=== PATIENT | male | born 1965 | race Caucasian/White ===

== ENCOUNTER → 2017-08-14 | Outpatient (CLI) | payer BC ==
--- NOTE | 2017-08-14 19:44 | CT ---
EXAMINATION TYPE: CT chest wo con DATE OF EXAM: 08/14/2017 COMPARISON: NONE HISTORY: Abnormal chest xray. Cough and nasal congestion x3 months. CT DLP: 486.2 mGycm. Automated Exposure Control for Dose Reduction was Utilized. TECHNIQUE: CT scan of the thorax is performed without IV contrast. FINDINGS: The lungs are clear of infiltrate. There is no evidence of a pulmonary mass. There is no mediastinal adenopathy. There are a few mediastinal and bronchial lymph nodes that measure less than 1 cm. Heart size is normal. There is no pericardial effusion. There is no pleural effusion. There is some hypertr ophic spurring in the thoracic spine. There is some low-density calcification in the lateral right ki dney at the corticomedullary junction. IMPRESSION: No evidence of a discrete pulmonary abnormality. No pleural effusion. Nonspecific small m ediastinal and bronchial lymph nodes. Nonobstructing right renal calcification.
== END | disposition home or self-care (01) ==
LOC: RADCTMAIN 19:17
PROVIDERS: ATTEND Family Medicine
DX: R93.8 Abnormal findings on diagnostic imaging of other specified body structures (principal)
CPT/HCPCS: 71250

== ENCOUNTER 2019-11-13 08:25 | Observation (INO) | payer BC ==
[2019-11-13] MEDS ORDERED: ASPIRIN 81 MG PO STA (08:34)
[2019-11-13] MEDS ORDERED: NITROGLYCERIN SL TABS 0.4 MG TAB SUBLINGUAL STA (08:45)
--- NOTE | 2019-11-13 08:47 | ED ---
Chest Pain HPI - General Source: patient, family, RN notes reviewed Mode of arrival: wheelchair Limitations: no limitations <Geraldo Rhodes - Last Filed: 11/13/19 10:47> <Pascual Starkey - Last Filed: 11/13/19 10:52> - General Chief Complaint: Chest Pain Stated Complaint: chest tightness Time Seen by Provider: 11/13/19 08:34 - History of Present Illness Initial Comments: This a 54-year-old male presents emergency Department chief complaint of chest discomfort. He states last few nights he's had pain when he lays down states it goes away though. Patient states though it for him this morning he woke up with severe chest discomfort which is still there. Patient states that he had a history of hypertension but does not take any current medications. He did try taking some Tums and Pepcid this morning but not changes symptoms. He has noticed when he lays down still symptoms worsen. He feels short of breath and has some pleuritic chest pain denies any exertional dyspnea. Patient denies fever, chills, cough no URI symptoms no abdominal complaints. Patient states he was supposed to have left hip surgery this was canceled he did not have any prior clearance to this. (Geraldo Rhodes) - Related Data Home Medications Medication Instructions Recorded Confirmed Omeprazole 20 mg PO DAILY PRN 11/13/19 11/13/19 traMADol HCL [Ultram] 50 mg PO HS PRN 11/13/19 11/13/19 Allergies Allergy/AdvReac Type Severity Reaction Status Date / Time No Known Allergies Allergy Verified 11/13/19 10:15 Review of Systems ROS Other: All systems not noted in ROS Statement are negative. <Geraldo Rhodes - Last Filed: 11/13/19 10:47> ROS Other: All systems not noted in ROS Statement are negative. <Pascual Starkey - Last Filed: 11/13/19 10:52> ROS Statement: Those systems with pertinent positive or pertinent negative responses have been documented in the HPI. Past Medical History Past Medical History: GERD/Reflux, Hypertension Additional Past Medical History / Comment(s): no Rx for BP, sinus infection- currently on rx History of Any Multi-Drug Resistant Organisms: None Reported Past Surgical History: Orthopedic Surgery Additional Past Surgical History / Comment(s): nasal surgery, surgery for tendon injury middle finger left hand, Past Anesthesia/Blood Transfusion Reactions: No Reported Reaction Past Psychological History: No Psychological Hx Reported Smoking Status: Never smoker Past Alcohol Use History: Occasional Past Drug Use History: Opiates - Past Family History Mother Family Medical History: Cancer <Geraldo Rhodes - Last Filed: 11/13/19 10:47> General Exam Limitations: no limitations General appearance: alert, in no apparent distress Head exam: Present: atraumatic, normocephalic, normal inspection Eye exam: Present: normal appearance, PERRL, EOMI. Absent: scleral icterus, conjunctival injection, periorbital swelling ENT exam: Present: normal exam, normal oropharynx, mucous membranes moist Neck exam: Present: normal inspection, full ROM. Absent: tenderness, meningism us, lymphadenopathy Respiratory exam: Present: normal lung sounds bilaterally. Absent: respiratory distress, wheezes, rales, rhonchi, stridor, chest wall tenderness Cardiovascular Exam: Present: regular rate, normal rhythm, normal heart sounds. Absent: systolic murmur, diastolic murmur, rubs, gallop, clicks GI/Abdominal exam: Present: soft, normal bowel sounds. Absent: distended, tenderness, guarding, rebound, rigid Neurological exam: Present: alert, oriented X3 Skin exam: Present: warm, dry, intact, normal color. Absent: rash <LalaGeraldo singh - Last Filed: 11/13/19 10:47> Course <Pascual Starkey - Last Filed: 11/13/19 10:52> Vital Signs 11/13/19 08:26 Temperature 98.1 F Pulse Rate 94 Respiratory 18 Rate Blood Pressure 137/90 O2 Sat by Pulse 98 Oximetry - Reevaluation(s) Reevaluation #1: 11/13/19 10:52 PA supervision: I proceeded [id number] evaluation the patient and also did discuss findings with him and his . Patient will be admitted he did present with complaints of chest pain suspicious for angina. Initial workup is negative the case is discussed with Dr. Mcarthur. (Pascual Starkey) Chest Pain [facility] <Geraldo Rhodes - Last Filed: 11/13/19 10:47> - MDM 54-year-old male presented for chest discomfort. At this time troponin is negative, EKG does not reveal any acute changes. D-dimer was elevated CTA was performed with negative for PE. I do have concerns that this may be underlying ACS. Patient will be admitted for observation, repeat troponin, placed on heparin with cardiology evaluation and echo (Geraldo Rhodes) Disposition <Geraldo Rhodes - Last Filed: 11/13/19 10:47> <Pascual Starkey - Last Filed: 11/13/19 10:52> Clinical Impression: Chest pain Disposition: ADMITTED IP TO THIS HOSP Condition: Fair Referrals: Tiffany Adams MD [Primary Care Provider] - 1-2 days
[2019-11-13 08:58] LABS: Basophils % (A) 0 %; Eosinophils # (A) 0.1 k/uL (0-0.7); Eosinophils % (A) 1 %; HCT 45.1 % (39.0-53.0); HGB 15.3 gm/dL (13.0-17.5); Lymphocytes # (A) 0.7 k/uL (1.0-4.8); Lymphocytes % (A) 7 %; MCH 31.4 pg (25.0-35.0); MCHC 33.9 g/dL (31.0-37.0); MCV 92.7 fL (80.0-100.0); Mean Platelet Volume 6.9; Monocytes # (A) 0.4 k/uL (0-1.0); Monocytes % (A) 4 %; Neutrophils # (A) 7.8 k/uL (1.3-7.7); Neutrophils % (A) 86 %; Platelet Count 228 k/uL (150-450); RBC 4.86 m/uL (4.30-5.90); WBC 9.1 k/uL (3.8-10.6)
[2019-11-13 09:11] LABS: ALT 19 U/L (4-49); AST 22 U/L (17-59); African American GFR (CKD) >90 (>60 ml/min/1.73 sqM); Albumin 4.4 g/dL (3.5-5.0); Alkaline Phosphatase 127 U/L (38-126); Anion Gap 6 mmol/L; Blood Urea Nitrogen 16 mg/dL (9-20); Calcium 9.6 mg/dL (8.4-10.2); Carbon Dioxide 28 mmol/L (22-30); Chloride 102 mmol/L (98-107); Glucose 142 mg/dL (74-99); Magnesium 1.8 mg/dL (1.6-2.3); Non-African American GFR(CKD) >90 (>60 ml/min/1.73 sqM); Potassium 4.4 mmol/L (3.5-5.1); Sodium 136 mmol/L (137-145); Total Bilirubin 0.6 mg/dL (0.2-1.3); Total Protein 8.3 g/dL (6.3-8.2)
[2019-11-13 09:22] LABS: INR 0.9 (<1.2); Prothrombin Time 9.8 sec (9.0-12.0)
[2019-11-13 09:31] LABS: D-Dimer 1.53 mg/L FEU (<0.60); Partial Thromboplastin Time 21.9 sec (22.0-30.0)
--- NOTE | 2019-11-13 09:35 | XR ---
EXAMINATION TYPE: XR chest 2V DATE OF EXAM: 11/13/2019 COMPARISON: NONE HISTORY: Chest pain TECHNIQUE: Frontal and lateral views of the chest are obtained. FINDINGS: There is no focal air space opacity. No evidence for pneumothorax. No pleural effusion. Linear atelectasis left lung base. The cardiac silhouette size is within normal limits. The osseous structures are grossly intact. IMPRESSION: 1. No acute cardiopulmonary process.
--- NOTE | 2019-11-13 10:36 | CT ---
EXAMINATION TYPE: CT chest angio for PE DATE OF EXAM: 11/13/2019 COMPARISON: None HISTORY: Chest tightness CT DLP: 508.4 mGycm CONTRAST: CT chest with contrast and 3D reconstruction with MIP imaging is performed without and with IV Contra st, patient injected with 100 ml mL of Isovue 370. Contrast-enhanced CT of the chest was performed through the course of the pulmonary arteries with lynette g and mediastinal window settings submitted. 3D reconstruction with MIP imaging was also performed. PULMONARY ARTERIES: The pulmonary arteries and their major tributaries are patent. I do not see honey dence for sizable filling defect to suggest pulmonary embolic process. LUNGS: Mild dependent atelectasis. The lungs are clear and free of infiltrate. No pulmonary nodule or mass is detected. No pleural effusion. MEDIASTINUM: Aorta is of normal caliber. The heart is not enlarged. No evidence for mediastinal mass . No mediastinal lymph nodes greater than 1cm. HILAR STRUCTURES: No evidence for mass. No hilar lymph nodes greater than 1 cm. UPPER ABDOMEN: No significant abnormality is seen. IMPRESSION: 1. No evidence for Pulmonary embolism at this time.
[2019-11-13] MEDS ORDERED: NITROGLYCERIN SL TABS 0.4 MG TAB SUBLINGUAL PRN (10:48)
[2019-11-13] MEDS ORDERED: HEPARIN SODIUM,PORCINE 5,000 UNIT/ML 1 ML VIAL IV ONE (10:48)
[2019-11-13] MEDS ORDERED: HEPARIN SOD,PORK IN 0.45% NACL 25,000 UNIT in 0.45% NACL 1 250ML.BAG IV SCH (11:00)
[2019-11-13] MEDS ORDERED: traMADol 50 MG TAB PO PRN (11:33)
[2019-11-13] MEDS ORDERED: PANTOPRAZOLE 40 MG TABLET PO PRN (11:33)
[2019-11-13] MEDS: METOPROLOL TARTRATE 25 MG TAB PO SCH (15:59)
[2019-11-13] MEDS ORDERED: ONDANSETRON 4 MG TAB PO PRN (17:33)
--- NOTE | 2019-11-13 18:07 | P.HPIM ---
History of Present Illness H&P Date: 11/13/19 Chief Complaint: Chest heaviness and fluttering History of presenting complaint: This is a pleasant 54-year-old patient of Dr. Adams. Patient presents with the sensation of something sitting on the upper part of the chest. Also noticed a fluttering sensation. Symptoms seem to be more prominent on lying down. Patient has had symptoms of reflux. Had an EGD a few years ago. No dizziness no lightheadedness. No perspiration. Patient otherwise had been active up until most of his life. Some exercise limitation due to arthritis of the left hip pending surgery. Review of systems: GEN.: None EYES: None HEENT: None NECK: None RESPIRATORY: None CARDIOVASCULAR: As above GASTROINTESTINAL: None GENITOURINARY: None MUSCULOSKELETAL: Left hip pain LYMPHATICS: None HEMATOLOGICAL: None PSYCHIATRY: None NEUROLOGICAL: None Past medical history to include: GERD, left hip arthritis, Social history: Does not smoke. Alcohol occasionally. . Works in utilities at the [employer] Physical examination: VITAL SIGNS: 99.1, 94, 18, 128/79, 97% on room air GENERAL: BMI 31.4, sitting up for in distress. EYES: Pupils equal. Conjunctiva normal. HEENT: External appearance of nose and ears normal, oral cavity grossly normal. NECK: JVD not raised; masses not palpable. HEART: First and second heart sounds are normal; no edema. LUNGS: Respiratory rate normal; clear to auscultation. ABDOMEN: Soft, nontender, liver spleen not palpable, no masses palpable. PSYCH: Alert and oriented x3; mood and affect normal. NEUROLOGICAL: Cranial nerves grossly intact; no facial asymmetry, power and sensation grossly intact. LYMPHATICS: No lymph nodes palpable in the axilla and neck INVESTIGATIONS, reviewed in the clinical context: White count 9.1 hemoglobin 15.3 platelets 228 potassium 4.4 creatinine 0.82 Troponin I 2 EKG tracing personally reviewed by me-nonspecific ST segment changes in inferior leads Telemetry-reports episodes of SVT with a rapid ventricular rate Chest CTA-pulmonary embolism ruled out Chest x-ray film personally reviewed by me- nil acute abnormality Assessment: -Recurrent episodes of SVT reported on the telemetry. Patient has nonspecific finding in the inferior leads. -GERD -Obesity BMI 31.4 -Left hip possibly secondary osteoarthritis secondary possibly sports activity Plan: Initial cardiac enzymes are negative. We'll check patient's thyroid function. Order 2-D echocardiogram. Care was discussed with the patient. Cardiology was consulted. Past Medical History Past Medical History: GERD/Reflux, Hypertension Additional Past Medical History / Comment(s): no Rx for BP, sinus infection- currently on rx History of Any Multi-Drug Resistant Organisms: None Reported Past Surgical History: Orthopedic Surgery Additional Past Surgical History / Comment(s): nasal surgery, surgery for tendon injury middle finger left hand, Past Anesthesia/Blood Transfusion Reactions: No Reported Reaction Past Psychological History: No Psychological Hx Reported Smoking Status: Never smoker Past Alcohol Use History: Occasional Past Drug Use History: Opiates - Past Family History Mother Family Medical History: Cancer Medications and Allergies Home Medications Medication Instructions Recorded Confirmed Type Omeprazole 20 mg PO DAILY PRN 11/13/19 11/13/19 History traMADol HCL [Ultram] 50 mg PO HS PRN 11/13/19 11/13/19 History Allergies Allergy/AdvReac Type Severity Reaction Status Date / Time No Known Allergies Allergy Verified 11/13/19 10:15 Physical Exam Vitals: Vital Signs Temp Pulse Resp BP Pulse Ox 11/13/19 08:26 98.1 F 94 18 137/90 98 Intake and Output 11/12/19 11/13/19 11/13/19 22:59 06:59 14:59 Output Total 300 Balance -300 Output: Urine 300 Other: Weight 113.398 kg Results CBC & Chem 7: 11/13/19 08:40 11/13/19 08:40 Labs: Abnormal Lab Results - Last 24 Hours (Table) 11/13/19 11/13/19 11/13/19 Range/Units 08:40 08:40 08:40 Neutrophils # 7.8 H (1.3-7.7) k/uL Lymphocytes # 0.7 L (1.0-4.8) k/uL APTT 21.9 L (22.0-30.0) sec D-Dimer 1.53 H (<0.60) mg/L FEU Sodium 136 L (137-145) mmol/L Glucose 142 H (74-99) mg/dL Alkaline Phosphatase 127 H (38-126) U/L Total Protein 8.3 H (6.3-8.2) g/dL
[2019-11-13] MEDS ORDERED: HEPARIN SODIUM,PORCINE 5,000 UNIT/ML 1 ML VIAL IV PRN (19:20)
[2019-11-13] MEDS ORDERED: ACETAMINOPHEN TAB 325 MG TAB PO PRN (21:12)
[2019-11-14 05:37] VITALS: RESP 12
[2019-11-14 07:49] LABS: Platelet Count 229 k/uL (150-450)
--- NOTE | 2019-11-14 08:23 | ECHOF ---
Referral Reason:chest pain MEASUREMENTS -------- HEIGHT: 175.3 cm WEIGHT: 113.4 kg BP: RVIDd: 2.4 cm (< 3.3) IVSd: 1.0 cm (0.6 - 1.1) LVIDd: 4.4 cm (3.9 - 5.3) LVPWd: 1.4 cm (0.6 - 1.1) IVSs: 1.7 cm LVIDs: 2.8 cm LVPWs: 1.9 cm Ao Diam: 3.5 cm (2.0 - 3.7) LA Diam: 3.7 cm (2.7 - 3.8) MV EXCURSION: 15.271 mm (> 18.000) MV EF SLOPE: 109 mm/s (70 - 150) EPSS: 0.5 cm MV E Louis: 0.83 m/s MV DecT: 203 ms MV A Louis: 0.77 m/s MV E/A Ratio: 1.08 RAP: 5.00 mmHg RVSP: 16.07 mmHg FINDINGS -------- Sinus rhythm. This was a technically difficult study with suboptimal views. The left ventricular size is normal. There is mild concentric left ventricular hypertrophy. Overa ll left ventricular systolic function is normal with, an EF between 55 - 60 %. The right ventricle is normal in size. The left atrial size is normal. The right atrial size is normal. Lumason used The aortic valve is trileaflet, and appears structurally normal. No aortic stenosis or regurgitation. The mitral valve is normal. There is trace mitral regurgitation. The tricuspid valve appears structurally normal. Trace tricuspid regurgitation present. Right abby tricular systolic pressure is normal at < 35 mmHg. There is no pulmonic regurgitation present. The aortic root size is normal. IVC Not well visulized. There is no pericardial effusion. CONCLUSIONS -------- 1. This was a technically difficult study with suboptimal views. 2. There is mild concentric left ventricular hypertrophy. 3. Overall left ventricular systolic function is normal with, an EF between 55 - 60 %. 4. The left atrial size is normal. 5. Lumason used 6. The aortic valve is trileaflet, and appears structurally normal. No aortic stenosis or regurgitati on. 7. There is trace mitral regurgitation. 8. Trace tricuspid regurgitation present. [employer]ICOND[employer]CTOR EQUIPMENT TECHNICIAN: Ny Venegas RDCS
[2019-11-14] MEDS: METOPROLOL TARTRATE 25 MG TAB PO SCH (08:38)
[2019-11-14] MEDS ORDERED: DOBUTamine DRIP for NUC MED 500 MG in DEXTROSE/WATER 1 250ML.BAG IV ONE (09:00)
[2019-11-14] MEDS ORDERED: ASPIRIN 325 MG TAB PO SCH (09:00)
[2019-11-14] MEDS ORDERED: ASPIRIN 81 MG PO SCH (09:00)
--- NOTE | 2019-11-14 09:45 | CONS ---
CONSULTATION Shaun Araiza is a 54-year-old gentleman who works for the [employer] in the [employer] department. He takes omeprazole sometimes for heartburn type situation. He has no allergies. He is reasonably active person, has no symptoms of chest pain usually. Yesterday, he felt some burning discomfort in the chest, had some pleuritic component to it. He came in with these symptoms and had an elevated D-dimer. He went on to have a CT angiogram which did not reveal any pulmonary embolism. This morning he does not have any pain. On questioning, the pain was more in the right anterior chest, sharp in nature, but seemed to persist and made him concerned and that is why he came into the hospital. He is relatively comfortable at this time. Three sets of troponins are normal. PAST MEDICAL HISTORY: Unremarkable for hypertension, diabetes or any other major medical problems. He has not had any significant medical problems. MEDICATIONS: None. ALLERGIES: None. PHYSICAL EXAMINATION: On examination, blood pressure is 128/70, pulse rate 70 per minute, regular. HEENT: Unremarkable. Fundus was not examined by me. Neck is supple. No JVD. I do not hear a carotid bruit. There is no thyromegaly. Heart exam reveals S1, S2 heard normally. No rub, murmur or gallop. Lungs are clear. Abdomen is soft, nontender. Lower extremities reveal normal pulses. No edema. Central nervous system is normal. EKG revealed sinus mechanism, no acute changes. LABORATORY DATA: Laboratory data suggests normal troponins and elevated D-dimer. IMPRESSION: 1. Atypical chest pain. 2. Patient had multiple episodes of what seems to be self-limited runs of paroxysmal atrial tachycardia, which have resolved since I started him on beta earlene. RECOMMENDATIONS: This patient's pain is very atypical. I will recommend an echocardiogram and if this is unremarkable, proceed with a stress echo. He had short runs of self-limited paroxysmal atrial tachycardia which have resolved since I started him on beta earlene yesterday. I will place him on 25 mg of metoprolol tartrate b.i.d., check thyroid functions and proceed with an echo and stress echo and if these are normal, he can be discharged and I will see him in the office in 3 to 4 weeks. I discussed my thoughts in detail with the patient. Thank you very much for the consult. MMODL / IJN: [id number] /
--- NOTE | 2019-11-14 10:18 | ECHOS ---
STRESS ECHOCARDIOGRAM INDICATIONS: Chest pain. MEDICATIONS: BASELINE HEART RATE: 59 BASELINE BLOOD PRESSURE: 150/82 MAXIMUM HEART RATE: 145 MAXIMUM BLOOD PRESSURE: 134/58 85% MPHR: 141 100% MPHR: 166 METS: MAXIMUM STAGE REACHED: TOTAL EXERCISE TIME: CLINICAL INFORMATION: Baseline rhythm is sinus mechanism, rate of 59, normal axis, intervals, normal electrocardiogram. Baseline blood pressure 150/82 mmHg. Patient received an infusion of dobutamine per protocol and subsequently 0.5 mg intravenous atropine peak rate 145 beats per minute which is equal to 87% maximum predicted heart rate. Peak blood pressure 134/58 mmHg. Electrocardiograph monitoring revealed no evidence of diagnostic ischemic ST deviation. Baseline echocardiogram revealed normal wall thickening and motion. At peak infusion, there was normal wall thickening and motion without any hypokinesis or dyskinesis. CONCLUSION: 1. Normal electrocardiographic response to dobutamine infusion. 2. Normal stress echocardiogram with no evidence of stress induced ischemia. MMODL / IJN: [id number] /
[2019-11-14 10:53] VITALS: TEMP 98.7
[2019-11-14 15:13] VITALS: BP 126/80; PULSE 65
--- NOTE | 2019-11-14 19:53 | P.DS ---
Providers Date of admission: 11/13/19 10:52 Expected date of discharge: 11/14/19 Attending physician: German Mcarthur Consults: 11/13/19 10:49 Consult Physician Urgent Consulting Provider: Alexander Sanchez Consult Reason/Comments: chest pain Do you want consulting provider notified?: Yes Primary care physician: Tiffany Adams [facility] Course: Chief Complaint: Chest heaviness and fluttering History of presenting complaint: This is a pleasant 54-year-old patient of Dr. Adams. Patient presents with the sensation of something sitting on the upper part of the chest. Also noticed a fluttering sensation. Symptoms seem to be more prominent on lying down. Patient has had symptoms of reflux. Had an EGD a few years ago. No dizziness no lightheadedness. No perspiration. Patient otherwise had been active up until most of his life. Some exercise limitation due to arthritis of the left hip pending surgery. Telemetry did show paroxysmal atrial tachycardia. Put on low-dose beta earlene. No further symptoms. Patient also found to have exacerbation of GERD. Today-care was discussed in detail with the patient. Questions were answered. Put on a scheduled dose PPIs. Will need outpatient EGD. Continue beta blockers. Also underwent a dobutamine stress test today that was negative. Consultation: Dr. KENYATTA Sanchez from cardiology Physical examination: VITAL SIGNS: GENERAL: BMI 31.4, sitting up for in distress. EYES: Pupils equal. Conjunctiva normal. HEENT: External appearance of nose and ears normal, oral cavity grossly normal. NECK: JVD not raised; masses not palpable. HEART: First and second heart sounds are normal; no edema. LUNGS: Respiratory rate normal; clear to auscultation. ABDOMEN: Soft, nontender, liver spleen not palpable, no masses palpable. PSYCH: Alert and oriented x3; mood and affect normal. NEUROLOGICAL: Cranial nerves grossly intact; no facial asymmetry, power and sensation grossly intact. LYMPHATICS: No lymph nodes palpable in the axilla and neck INVESTIGATIONS, reviewed in the clinical context: Dobutamine stress echocardiogram-negative for ischemia TSH 1.3 LDL 35 White count 9.1 hemoglobin 15.3 platelets 228 potassium 4.4 creatinine 0.82 Troponin I 2 EKG tracing personally reviewed by me-nonspecific ST segment changes in inferior leads Telemetry-reports episodes of SVT with a rapid ventricular rate Chest CTA-pulmonary embolism ruled out Chest x-ray film personally reviewed by me- nil acute abnormality 2-D echocardiogram,-EF 55-60% Assessment: -Paroxysmal symptomatic atrial tachycardia -GERD exacerbation -Obesity BMI 31.4 -Left hip possibly secondary osteoarthritis secondary possibly sports activity Disposition: Home Patient Condition at Discharge: Fair Plan - Discharge Summary Discharge Rx Participant: No New Discharge Prescriptions: New Metoprolol Tartrate [Lopressor] 12.5 mg PO BID #60 tab Continue traMADol HCL [Ultram] 50 mg PO HS PRN PRN Reason: Pain Changed Omeprazole 20 mg PO BID #60 cap Discharge Medication List traMADol HCL [Ultram] 50 mg PO HS PRN 11/13/19 [History] Metoprolol Tartrate [Lopressor] 12.5 mg PO BID #60 tab 11/14/19 [Rx] Omeprazole 20 mg PO BID #60 cap 11/14/19 [Rx] Follow up Appointment(s)/Referral(s): Alexander Sanchez MD [STAFF PHYSICIAN] - 3 Weeks (call to make appt ) Charissa Ballard MD [STAFF PHYSICIAN] - 2 Weeks (EGD-uncontrolled reflux) Tiffany Adams MD [Primary Care Provider] - 1-2 days (make appt ) Patient Instructions/Handouts: Chest Pain (DC), Gastroesophageal Reflux Disease (DC), Atrial Tachycardia (DC), Cardiac Stress Test (DC) Discharge Disposition: HOME SELF-CARE
== END 2019-11-14 17:05 | disposition home or self-care (01) ==
LOC: EC 08:25 → 3SCARD 10:52
PROVIDERS: ADMIT Hospitalist; ATTEND Hospitalist
DX: R07.89 Other chest pain (principal); R79.89 Other specified abnormal findings of blood chemistry; R07.81 Pleurodynia; R06.02 Shortness of breath; I49.8 Other specified cardiac arrhythmias; I47.1 Supraventricular tachycardia; M25.552 Pain in left hip; I10 Essential (primary) hypertension; K21.9 Gastro-esophageal reflux disease without esophagitis; E66.9 Obesity, unspecified; Z68.31 Body mass index [BMI] 31.0-31.9, adult; Z79.899 Other long term (current) drug therapy; Z79.891 Long term (current) use of opiate analgesic; Z80.9 Family history of malignant neoplasm, unspecified
CPT/HCPCS: 96376 ×2; 96366 ×2; 93005 ×3; 96365; 99285; 36415; 93306; 93351; 85379; 80061; 80053; 84443; 83735; 84484; 85025; 85049; 85610; 85730 ×2; 71046; 71275; G0378 ×2; J1250; J1644 ×2; Q9950; Q9967

== ENCOUNTER 2019-11-30 16:17 | Emergency (ER) | payer BC ==
[2019-11-30 16:23] VITALS: RESP 18
[2019-11-30 17:32] LABS: Basophils % (A) 0 %; Eosinophils # (A) 0.1 k/uL (0-0.7); Eosinophils % (A) 3 %; HCT 43.7 % (39.0-53.0); HGB 15.1 gm/dL (13.0-17.5); Lymphocytes # (A) 0.2 k/uL (1.0-4.8); Lymphocytes % (A) 3 %; MCH 31.9 pg (25.0-35.0); MCHC 34.5 g/dL (31.0-37.0); MCV 92.6 fL (80.0-100.0); Mean Platelet Volume 7.4; Monocytes # (A) 0.1 k/uL (0-1.0); Monocytes % (A) 2 %; Neutrophils # (A) 5.1 k/uL (1.3-7.7); Neutrophils % (A) 92 %; Platelet Count 189 k/uL (150-450); RBC 4.72 m/uL (4.30-5.90); RDW 11.9 % (11.5-15.5); WBC 5.6 k/uL (3.8-10.6)
[2019-11-30] MEDS ORDERED: ACETAMINOPHEN TAB 325 MG TAB PO STA (17:32)
[2019-11-30 17:45] LABS: ALT 32 U/L (4-49); AST 29 U/L (17-59); African American GFR (CKD) >90 (>60 ml/min/1.73 sqM); Albumin 3.9 g/dL (3.5-5.0); Alkaline Phosphatase 123 U/L (38-126); Anion Gap 11 mmol/L; Blood Urea Nitrogen 13 mg/dL (9-20); Calcium 8.9 mg/dL (8.4-10.2); Carbon Dioxide 23 mmol/L (22-30); Chloride 101 mmol/L (98-107); Glucose 129 mg/dL (74-99); Non-African American GFR(CKD) >90 (>60 ml/min/1.73 sqM); Potassium 4.1 mmol/L (3.5-5.1); Sodium 135 mmol/L (137-145); Total Bilirubin 0.4 mg/dL (0.2-1.3); Total Protein 7.7 g/dL (6.3-8.2)
[2019-11-30 18:08] LABS: Appearance,Urine Clear (Clear); Bilirubin,Urine Negative (Negative); Blood,Urine Trace (Negative); Color,Urine Yellow; Glucose,Urine (UA) Negative (Negative); Ketones,Urine Negative (Negative); Leukocyte Esterase,Urine Negative (Negative); Mucus,Urine Rare /hpf; Nitrite,Urine Negative (Negative); PH, Urine 5.5 (5.0-8.0); Protein,Urine Negative (Negative); RBC,Urine 1 /hpf (0-5); Specific Gravity,Urine 1.013 (1.001-1.035); Urobilinogen,Urine <2.0 mg/dL (<2.0); WBC,Urine 1 /hpf (0-5)
--- NOTE | 2019-11-30 18:21 | XR ---
EXAMINATION TYPE: XR chest 2V DATE OF EXAM: 11/30/2019 COMPARISON: 11/13/2019 HISTORY: Fever TECHNIQUE: FINDINGS: Heart and mediastinum are normal. Lungs are clear of consolidation. There is no heart failu re. There are no hilar masses. There is small linear density left lung base. Bony thorax is intact. IMPRESSION: Small area of subsegmental atelectasis left lung base unchanged. Normal heart.
[2019-11-30] MEDS ORDERED: AMOXIC-POT CLAV 875MG STARTER PACK 2 TAB BTL PO STA (18:42)
[2019-11-30] MEDS ORDERED: AMOXIC-POT CLAV 875-125MG 1 EACH TAB PO STA (18:42)
--- NOTE | 2019-11-30 18:53 | ED ---
General Adult HPI - General Chief complaint: Fever Stated complaint: sinus infection Time Seen by Provider: 11/30/19 16:52 Source: patient, RN notes reviewed, old records reviewed Mode of arrival: ambulatory Limitations: no limitations - History of Present Illness Initial comments: 54-year-old male patient presents ED for chief complaint of approximately 3 days of fever. Patient reports that he has lots of sinus congestion and has had issues with sinus infections in the past. Reports that has had waxing and waning fevers. Frontal maxillary sinus pressure. Reports that he has a very mild cough which she believes is from the sinus drainage. Denies any other complaints at this time. Denies any chest pain shortness of breath headache. Systemic: Pt denies fatigue, frash. Pt denies weakness, night sweats, weight loss. Neuro: Pt denies headache, visual disturbances, syncope or pre-syncope. HEENT: Pt denies ocular discharge or irritation, otalgia, rhinorrhea, pharyngitis or notable lymphadenopathy. Cardiopulmonary: Pt denies chest pain, SOB, heart palpitations, dyspnea on exertion. Abdominal/GI: Pt denies abdominal pain, n/v/d. : Pt denies dysuria, burning w/ urination, frequency/urgency. Denies new onset urinary or bowel incontinence. MSK: Pt denies myalgia, loss of strength or function in extremities. Neuro: Pt denies new onset weakness, paresthesias. - Related Data Home Medications Medication Instructions Recorded Confirmed traMADol HCL [Ultram] 50 mg PO HS PRN 11/13/19 11/13/19 Previous Rx's Medication Instructions Recorded Metoprolol Tartrate [Lopressor] 12.5 mg PO BID #60 tab 11/14/19 Omeprazole 20 mg PO BID #60 cap 11/14/19 Amoxicillin/Potassium Clav 1 each PO Q12HR 14 Days #28 tab 11/30/19 [Augmentin 875-125 Tablet] Allergies Allergy/AdvReac Type Severity Reaction Status Date / Time No Known Allergies Allergy Verified 11/30/19 16:23 Review of Systems ROS Statement: Those systems with pertinent positive or pertinent negative responses have been documented in the HPI. ROS Other: All systems not noted in ROS Statement are negative. Past Medical History Past Medical History: GERD/Reflux, Hypertension Additional Past Medical History / Comment(s): no Rx for BP, sinus infection- currently on rx History of Any Multi-Drug Resistant Organisms: None Reported Past Surgical History: Orthopedic Surgery Additional Past Surgical History / Comment(s): nasal surgery, surgery for tendon injury middle finger left hand, Past Anesthesia/Blood Transfusion Reactions: No Reported Reaction Past Psychological History: No Psychological Hx Reported Smoking Status: Never smoker Past Alcohol Use History: Occasional Past Drug Use History: None Reported - Past Family History Mother History Unknown: Yes Family Medical History: Cancer General Exam - General Exam Comments Initial Comments: Constitutional: NAD, AOX3, Pt has pleasant affect. HEENT: NC/AT, trachea midline, neck supple, no lymphadenopathy. Posterior pharynx non erythematous, without exudates. External ears appear normal, without discharge. Mucous membranes moist. Eyes PERRLA, EOM intact. There is no scleral icterus. No pallor noted. Mild appears full pressure on frontal maxillary sinus. No temporal tenderness palpable cord or skin changes. Cardiopulmonary: RRR, no murmurs, rubs or gallops, no JVD noted. Lungs CTAB in anterior and posterior calloway. No peripheral edema. Abdominal exam: Abdomen soft and non-distended. Abdomen non-tender to palpation in all 4 quadrants. Bowel sounds active in LLQ. No hepatosplenomegaly. No ecc hymosis Neuro: CN II-XII intact. No nuchal rigidity. No raccon eyes, no mitchell sign, no hemotympanum. No cervical spinal tenderness. MSK: No posterior calf tenderness bilaterally, homans sign negative bilaterally. Posterior tibialis and radial pulse +2 bilaterally. Sensation intact in upper and lower extremities. Full active ROM in upper and lower extremities, 5/5 stregnth. Limitations: no limitations Course Vital Signs 11/30/19 11/30/19 16:19 19:03 Temperature 102.0 F H 100 F H Pulse Rate 123 H 98 Respiratory 18 18 Rate Blood Pressure 139/80 138/78 O2 Sat by Pulse 96 98 Oximetry Medical Decision Making - Medical Decision Making 54-year-old male patient presents ED for chief complaint of approximately 3 days of fever. Patient reports that he has lots of sinus congestion and has had issues with sinus infections in the past. Reports that has had waxing and waning fevers. Frontal maxillary sinus pressure. Reports that he has a very mild cough which she believes is from the sinus drainage. Denies any other com plaints at this time. Denies any chest pain shortness of breath headache. Patient vital signs are stable, afebrile. Physical exam displayed appears full sinus pressure. Laboratory investigations are obtained and overall unremarkable. Chest x-ray displayed small area of subsegmental atelectasis which is unchanged from prior. Patient will be placed on Augmentin and will have close patient follow-up with primary care provider and return to ER physician worsens. Case discussed with Dr. Morrison. - Lab Data Result diagrams: 11/30/19 17:10 11/30/19 17:10 Lab Results 11/30/19 11/30/19 11/30/19 Range/Units 17:10 17:10 17:10 WBC 5.6 (3.8-10.6) k/uL RBC 4.72 (4.30-5.90) m/uL Hgb 15.1 (13.0-17.5) gm/dL Hct 43.7 (39.0-53.0) % MCV 92.6 (80.0-100.0) fL MCH 31.9 (25.0-35.0) pg MCHC 34.5 (31.0-37.0) g/dL RDW 11.9 (11.5-15.5) % Plt Count 189 (150-450) k/uL Neutrophils % 92 % Lymphocytes % 3 % Monocytes % 2 % Eosinophils % 3 % Basophils % 0 % Neutrophils # 5.1 (1.3-7.7) k/uL Lymphocytes # 0.2 L (1.0-4.8) k/uL Monocytes # 0.1 (0-1.0) k/uL Eosinophils # 0.1 (0-0.7) k/uL Basophils # 0.0 (0-0.2) k/uL Sodium 135 L (137-145) mmol/L Potassium 4.1 (3.5-5.1) mmol/L Chloride 101 (98-107) mmol/L Carbon Dioxide 23 (22-30) mmol/L Anion Gap 11 mmol/L BUN 13 (9-20) mg/dL Creatinine 0.94 (0.66-1.25) mg/dL Est GFR (CKD-EPI)AfAm >90 (>60 ml/min/1.73 sqM) Est GFR (CKD-EPI)NonAf >90 (>60 ml/min/1.73 sqM) Glucose 129 H (74-99) mg/dL Plasma Lactic Acid Ron 1.7 (0.7-2.0) mmol/L Calcium 8.9 (8.4-10.2) mg/dL Total Bilirubin 0.4 (0.2-1.3) mg/dL AST 29 (17-59) U/L ALT 32 (4-49) U/L Alkaline Phosphatase 123 (38-126) U/L Total Protein 7.7 (6.3-8.2) g/dL Albumin 3.9 (3.5-5.0) g/dL Urine Color Urine Appearance (Clear) Urine pH (5.0-8.0) Ur Specific Ora (1.001-1.035) Urine Protein (Negative) Urine Glucose (UA) (Negative) Urine Ketones (Negative) Urine Blood (Negative) Urine Nitrite (Negative) Urine Bilirubin (Negative) Urine Urobilinogen (<2.0) mg/dL Ur Leukocyte Esterase (Negative) Urine RBC (0-5) /hpf Urine WBC (0-5) /hpf Urine Mucus (None) /hpf Coronavirus (PCR) (Not Detectd) Influenza Type A RNA (Not Detectd) Influenza Type B (PCR) (Not Detectd) 11/30/19 11/30/19 Range/Units 17:42 17:42 WBC (3.8-10.6) k/uL RBC (4.30-5.90) m/uL Hgb (13.0-17.5) gm/dL Hct (39.0-53.0) % MCV (80.0-100.0) fL MCH (25.0-35.0) pg MCHC (31.0-37.0) g/dL RDW (11.5-15.5) % Plt Count (150-450) k/uL Neutrophils % % Lymphocytes % % Monocytes % % Eosinophils % % Basophils % % Neutrophils # (1.3-7.7) k/uL Lymphocytes # (1.0-4.8) k/uL Monocytes # (0-1.0) k/uL Eosinophils # (0-0.7) k/uL Basophils # (0-0.2) k/uL Sodium (137-145) mmol/L Potassium (3.5-5.1) mmol/L Chloride (98-107) mmol/L Carbon Dioxide (22-30) mmol/L Anion Gap mmol/L BUN (9-20) mg/dL Creatinine (0.66-1.25) mg/dL Est GFR (CKD-EPI)AfAm (>60 ml/min/1.73 sqM) Est GFR (CKD-EPI)NonAf (>60 ml/min/1.73 sqM) Glucose (74-99) mg/dL Plasma Lactic Acid Ron (0.7-2.0) mmol/L Calcium (8.4-10.2) mg/dL Total Bilirubin (0.2-1.3) mg/dL AST (17-59) U/L ALT (4-49) U/L Alkaline Phosphatase (38-126) U/L Total Protein (6.3-8.2) g/dL Albumin (3.5-5.0) g/dL Urine Color Yellow Urine Appearance Clear (Clear) Urine pH 5.5 (5.0-8.0) Ur Specific Ora 1.013 (1.001-1.035) Urine Protein Negative (Negative) Urine Glucose (UA) Negative (Negative) Urine Ketones Negative (Negative) Urine Blood Trace H (Negative) Urine Nitrite Negative (Negative) Urine Bilirubin Negative (Negative) Urine Urobilinogen <2.0 (<2.0) mg/dL Ur Leukocyte Esterase Negative (Negative) Urine RBC 1 (0-5) /hpf Urine WBC 1 (0-5) /hpf Urine Mucus Rare H (None) /hpf Coronavirus (PCR) Not Detected (Not Detectd) Influenza Type A RNA Not Detected (Not Detectd) Influenza Type B (PCR) Not Detected (Not Detectd) - EKG Data -: EKG Interpreted by Me (and Dr. Morrison ) EKG Comments: Ventricular rate 111, IN interval 126, QRS 84, QT/QTC 310/421. Sinus tachycardia, cannot rule out inferior infarct age undetermined. Disposition Clinical Impression: Fever, Sinusitis Disposition: HOME SELF-CARE Condition: Stable Instructions (If sedation given, give patient instructions): Sinusitis (ED), Fe monalisa in Adults (ED) Additional Instructions: Follow-up with primary care provider tomorrow. Take antibiotics as directed. Return immediately to ER if condition worsens in any way. Prescriptions: Amoxicillin/Potassium Clav [Augmentin 875-125 Tablet] 1 each PO Q12HR 14 Days #28 tab Is patient prescribed a controlled substance at d/c from ED?: No Referrals: Tiffany Adams MD [Primary Care Provider] - 1-2 days
[2019-11-30 19:04] VITALS: BP 138/78; PULSE 98; TEMP 100
== END 2019-11-30 19:06 | disposition home or self-care (01) ==
LOC: EC 16:17
DX: J32.1 Chronic frontal sinusitis (principal); J98.11 Atelectasis; I10 Essential (primary) hypertension
CPT/HCPCS: 36415; 71046; 80053; 81001; 83605; 85025; 87040; 87502; 87635; 93005; 99284

== ENCOUNTER → 2019-12-02 | Outpatient (CLI) | payer BC ==
[2019-12-02 23:27] LABS: C Reactive Protein 10.1 mg/dL (0.0-0.8)
== END | disposition home or self-care (01) ==
LOC: LABMAIN 14:45
PROVIDERS: ATTEND Internal Medicine
DX: R50.9 Fever, unspecified (principal)
CPT/HCPCS: 36415; 85652; 86038; 86140; 86431; 87040; 87635

== ENCOUNTER → 2019-12-10 | Outpatient (CLI) | payer BC | END | disposition home or self-care (01) | LOC: LABWHC1 08:58 | PROVIDERS: ATTEND Internal Medicine Gastroenterology | DX: Z11.59 Encounter for screening for other viral diseases (principal) | CPT/HCPCS: 87635 ==

== ENCOUNTER 2019-12-12 07:39 | Day surgery (SDC) | payer BC ==
[2019-12-11 09:58] VITALS: BMI 31.0
[~2019-12-12 07:39] MED LIST: LACTATED RINGERS 1,000 ML IV SCH; LIDOCAINE 1% (10MG/ML) FOR IV START INTRADERMA PRN
[2019-12-12 08:11] VITALS: RESP 16; TEMP 97.6
[2019-12-12] MEDS ORDERED: LIDOCAINE 1% INJ 10MG/ML (20 ML MDV) ONE (08:12)
[2019-12-12] MEDS ORDERED: PROPOFOL 10 MG/ML 20 ML VIAL IV ONE (08:12)
--- NOTE | 2019-12-12 08:23 | P.PCN ---
Date of Procedure: 12/12/19 Procedure(s) Performed: BRIEF HISTORY: Patient is a 54-year-old, pleasant, white male scheduled for an upper endoscopy for evaluation long-standing history of GERD and recently has been having intermittent chest pain. He went to the emergency room at [facility] and had cardiac workup done that was negative. Subsequently the omeprazole was increased to 20 mg twice daily and symptoms and symptoms have significantly improved.. PROCEDURE PERFORMED: Esophagogastroduodenoscopy with biopsy. PREOPERATIVE DIAGNOSIS: Atypical chest pain and long-standing history of GERD. IV sedation per anesthesia. PROCEDURE: After informed consent was obtained, the patient was brought into the endoscopy unit. IV sedation was administered by Anesthesia under continuous monitoring. Initially the Olympus GIF-140 video endoscope was inserted into the mouth. Esophagus intubated without any difficulty. It was gradually advanced into the stomach and duodenum and carefully examined. The bulb and the second part of the duodenum appeared normal. The scope at this time was withdrawn to the stomach, adequately insufflated with air, and upon careful examination, mucosa of the antrum, had mild gastritis and biopsies were done from this area. The body, cardia and the fundus appeared normal. The scope was then withdrawn into the esophagus. The GE junction was located at 42 cm from the incisors. The esophagus appeared normal. There were no erosions or ulcerations seen , biopsies were done from the distal esophagus and the patient tolerated the procedure well. IMPRESSION: 1. Mild antral gastritis. 2. Normal-appearing esophagus with no evidence of esophagitis or esophageal stricture. RECOMMENDATIONS: The findings of this examination were discussed with the patient as well as his family. He was advised to follow with the biopsy results. He will continue with omeprazole 20 mg twice daily for 6 weeks and after that he can decrease it to once daily. He was briefly educated about diet modification antireflux measures. He'll be seen in office in 3 months..
[2019-12-12 08:37] VITALS: BP 127/78; PULSE 54
== END 2019-12-12 09:16 | disposition home or self-care (01) ==
LOC: ORWHC2ENDO 07:39
PROVIDERS: ATTEND Internal Medicine Gastroenterology
DX: K29.50 Unspecified chronic gastritis without bleeding (principal); K21.9 Gastro-esophageal reflux disease without esophagitis; I10 Essential (primary) hypertension; Z98.890 Other specified postprocedural states; Z79.899 Other long term (current) drug therapy
CPT/HCPCS: 43239; J2001; J2704; 88305

== ENCOUNTER → 2019-12-26 | Outpatient (CLI) | payer BC | END | disposition home or self-care (01) | LOC: LABPAT 11:40 | PROVIDERS: ATTEND Orthopaedic Surgery | DX: Z01.818 Encounter for other preprocedural examination (principal); Z01.812 Encounter for preprocedural laboratory examination; U07.1 COVID-19 | CPT/HCPCS: 80053; 81001; 85027; 85610; 85730; 86850; 86900; 86901; 87070; 93005 ==

== ENCOUNTER 2019-12-29 11:20 | Day surgery (SDC) | payer BC ==
[2019-12-24 14:26] VITALS: BMI 31.1
[2019-12-26 13:43] LABS: HCT 44.7 % (39.0-53.0); HGB 14.5 gm/dL (13.0-17.5); MCH 30.4 pg (25.0-35.0); MCHC 32.4 g/dL (31.0-37.0); MCV 93.8 fL (80.0-100.0); Mean Platelet Volume 7.1; Platelet Count 195 k/uL (150-450); RBC 4.77 m/uL (4.30-5.90); WBC 3.4 k/uL (3.8-10.6)
[2019-12-26 13:44] LABS: ALT 35 U/L (4-49); AST 32 U/L (17-59); African American GFR (CKD) >90 (>60 ml/min/1.73 sqM); Alkaline Phosphatase 116 U/L (38-126); Anion Gap 10 mmol/L; Blood Urea Nitrogen 10 mg/dL (9-20); Calcium 8.9 mg/dL (8.4-10.2); Carbon Dioxide 25 mmol/L (22-30); Chloride 103 mmol/L (98-107); Glucose 105 mg/dL (74-99); Non-African American GFR(CKD) >90 (>60 ml/min/1.73 sqM); Potassium 4.2 mmol/L (3.5-5.1); Sodium 138 mmol/L (137-145); Total Bilirubin 0.6 mg/dL (0.2-1.3)
[2019-12-26 13:48] LABS: Appearance,Urine Clear (Clear); Bacteria,Urine Rare /hpf; Bilirubin,Urine Negative (Negative); Blood,Urine Small (Negative); Color,Urine Yellow; Glucose,Urine (UA) Negative (Negative); Ketones,Urine Negative (Negative); Leukocyte Esterase,Urine Negative (Negative); Mucus,Urine Many /hpf; Nitrite,Urine Negative (Negative); Protein,Urine Trace (Negative); RBC,Urine 4 /hpf (0-5); Specific Gravity,Urine 1.026 (1.001-1.035); Squamous Epithelial Cell,Urine <1 /hpf (0-4); WBC,Urine 3 /hpf (0-5)
[2019-12-26 13:50] LABS: INR 0.9 (<1.2); Prothrombin Time 9.9 sec (9.0-12.0)
[2019-12-26 14:04] LABS: Partial Thromboplastin Time 21.5 sec (22.0-30.0)
[~2019-12-29 11:20] MED LIST changes: +ACETAMINOPHEN TAB 500 MG TAB PO ONE; +DEXAMETHASONE SOD PHOSPHATE 10 MG/ML 1 ML VIAL IV ONE; +GABAPENTIN 300 MG CAP PO ONE; +HYDROmorphone 0.5 MG/0.5 ML SYRINGE IVP PRN; -LIDOCAINE 1% (10MG/ML) FOR IV START INTRADERMA PRN; +MELOXICAM 7.5 MG TAB PO ONE; +ONDANSETRON 4 MG/2 ML VIAL IVP ONE; +ROPIVACAINE 246.25 MG, EPINEPHrine 0.5 MG, KETOROLAC 30 MG, cloNIDine HCL/PF 80 MCG, WA... MISCELLANE ONE; +TRANEXAMIC ACID 1,000 MG in SODIUM CHLORIDE 0.9% 100 ML IVPB ONE
[2019-12-29] MEDS ORDERED: IV FLUID CONTINUATION 1,000 ML IV ONE (12:55)
[2019-12-29] MEDS ORDERED: traMADol 50 MG TAB PO PRN (13:06)
[2019-12-29] MEDS ORDERED: HYDROmorphone 0.5 MG/0.5 ML SYRINGE IVP PRN ×2 (13:06)
[2019-12-29] MEDS ORDERED: HYDROmorphone 1 MG/ML 1 ML SYRINGE IVP PRN (13:06)
[2019-12-29] MEDS ORDERED: HYDROcodone/APAP 10-325MG 1 EACH TAB PO PRN (13:06)
[2019-12-29] MEDS ORDERED: ONDANSETRON 4 MG/2 ML VIAL IVP PRN (13:06)
[2019-12-29] MEDS ORDERED: NALOXONE 0.4 MG/ML 1 ML VIAL IV PRN (13:06)
[2019-12-29] MEDS ORDERED: HYDROcodone/APAP 5-325MG 1 EACH TAB PO PRN (13:06)
[2019-12-29] MEDS ORDERED: MAGNESIUM HYDROXIDE 2,400 MG/10 ML CUP PO PRN (13:06)
[2019-12-29] MEDS ORDERED: DIAZEPAM 5 MG TAB PO PRN (13:06)
[2019-12-29] MEDS ORDERED: TEMAZEPAM 15 MG CAP PO PRN (13:06)
[2019-12-29] MEDS ORDERED: fentaNYL (PF) 50 MCG/ML 2 ML AMP ONE (13:15)
[2019-12-29] MEDS ORDERED: SODIUM CHLORIDE 0.9% 100 ML BAG ONE (13:15)
[2019-12-29] MEDS ORDERED: LIDOCAINE 1% INJ 10MG/ML (20 ML MDV) ONE (13:15)
[2019-12-29] MEDS ORDERED: PROPOFOL 10 MG/ML 20 ML VIAL IV ONE (13:15)
[2019-12-29] MEDS ORDERED: MIDAZOLAM 2 MG/2 ML VIAL ONE (13:15)
[2019-12-29] MEDS ORDERED: diphenhydrAMINE 50 MG/ML 1 ML VIAL ONE (13:15)
[2019-12-29] MEDS ORDERED: TRANEXAMIC ACID 1,000 MG/10 ML VIAL ONE (13:15)
[2019-12-29] MEDS ORDERED: ceFAZolin 3,000 MG in SODIUM CHLORIDE 0.9% IRRIGATIO 3,000 ML IRRIGATION ONE (13:17)
--- NOTE | 2019-12-29 14:43 | P.OP ---
Date of Procedure: 12/29/19 Preoperative Diagnosis: Severe osteoarthritis left hip Postoperative Diagnosis: Severe osteoarthritis left hip Procedure(s) Performed: Left total hip arthroplasty with a direct anterior approach Implants: Eid and nephew Polarstem size 4 standard Eid & Nephew R3, 3 hole acetabular shell, 52 mm Eid [employer] Nephew reflection 6.5 mm cancellus screw, 20 mm 2 Eid [employer] Nephew R3, XLPE 20 acetabular liner Eid & Nephew Oxinium femoral head 36 m, +4 All components were press-fit. The articulation is Oxinium on polyethylene. Anesthesia: spinal Surgeon: Geraldo Farrar Professor Of Legal Studies #1: Myles Andrews Estimated Blood Loss (ml): 200 (72 mL returned with Cell Saver) Pathology: other (Femoral head) Condition: stable Disposition: PACU Indications for Procedure: After failure of conservative treatment we discussed the surgical and nonsurgical treatment options at length. Patient wishes to proceed with a total hip arthroplasty with a direct anterior approach. Complications specific to this procedure were discussed at length, including but not limited to infection, leg length discrepancy, dislocation, and nerve injury. Covid-19 was also discussed at length with the patient, and they are aware of the current policies and procedures. The patient was given the option of delaying surgery, but they elect to proceed knowing these risks. Patient is aware of all these complications and informed consent was obtained Operative Findings: The operative findings are consistent with severe osteoarthritis of the left hip Description of Procedure: Patient was seen and evaluated in the preoperative area, consent was reviewed, and the surgical site was marked with a skin marker. Patient was then brought to the operating room and given prophylactic antibiotics intravenously. 1 g of Tranexamic acid was also given. A spinal anesthetic was administered by the anesthesia department. The patient was then placed on the Homer table with the bony prominences well-padded. The hip area was then prepped and draped in usual sterile fashion. A universal timeout was then performed, which confirmed the patient's name, surgical site, ALLERGIES, and procedure being performed. Next the incision site was located at 1 cm distal and 1 cm lateral to the anterior superior iliac spine. The skin and subcutaneous tissues were sharply incised. Incision was carefully dissected down to the fascia overlying the tensor fascia precious muscle. This fascia was then incised in line with the incision. Next, using blunt finger dissection, the tensor fascia precious muscle was dissected off its investing fascia. The muscle was then carefully retracted laterally with a cobra retractor over the lateral neck of the femur. Next, the circumflex vessels were identified and cauterized using the AquaMantis device. The anterior hip capsule was then exposed. The capsule was then opened and an inverted T fashion. Cobra retractors were then placed intracapsularly. The proximal femur was then visualized. The femoral neck was then osteotomized appropriate level above the lesser trochanter. Small amount of traction was placed with the Homer table. A small wedge of bone was then removed from the remaining femoral head. Next, using a corkscrew femoral head was easily removed from the acetabulum. On gross visual inspection, the femoral head had complete loss of articular cartilage in multiple periarticular osteophytes. Attention was then turned to the acetabulum. the acetabulum was exposed and any remaining labrum was excised. Sequential reaming of the acetabulum was performed using fluoroscopic guidance. When the appropriate size was reached, a trial was then placed. The position and fit of the trial was checked with fluoroscopy. The trial was then removed. Then, using fluoroscopic guidance, the final implant was impacted at 20 of anteversion and 40 of abduction, and fully seated in the acetabulum. 2 screws were then placed in the acetabulum. Again fluoroscopy was used to check position of the screws. Next, the liner was then impacted, with a 20 elevated liner located in the anterior superior quadrant. Component locking was confirmed. Attention was then directed to the femur. With the aid of the Homer table, the femur was externally rotated to approximately 130, extended, and abducted under the opposite leg. A side hook was then placed under the proximal femur, and the side hook elevator was used to elevate the proximal femur. Retractors were then placed. A capsular release was performed, as well as a release of the conjoined tendon, which afforded excellent visualization of the proximal femur. Next, a box osteotome was used to lateralize the proximal femur. A hands parter was then used to locate the femoral canal. Sequential broaching was then performed with appropriate size which afforded excellent fixation in the proximal femur. A trial was then placed with appropriate head and neck, and the hip was gently reduced with the aid of the Homer table. Fluoroscopy was then used to check position of the components, as well as to ensure equal leg lengths. The hip was then gently dislocated and the trials were then removed. Final implants were then impacted and the hip was again reduced. Final fluoroscopic x-rays confirmed that the components were in anatomic position, as well as equal leg lengths. The hip was also taken through range of motion, and found to be stable. The hip was then copiously irrigated with antibiotic solution with pulsatile lavage. The hip was then irrigated with Irrisept solution. The soft tissues were then injected with a ropivacaine solution, which consisted of 246.25 mg of ropivacaine, 0.5 mg of epinephrine, 30 mg of Toradol, 80 g of clonidine, and 48.45 mL of sterile water, for a total of 100 mL of fluid injected. A second dose of 1 g of Tranexamic acid was also given. the fascia was then closed with 2-0 strata fix suture. The subcutaneous tissue was closed with 3-0 Vicryl. The subcuticular tissue was closed with 3-0 strata fix suture. The skin was then closed with Dermabond glue and a sterile silver dressing. The patient was then transferred to the recovery room in stable condition. The veterinarian assistant LAWRENCE Vargas was required due to the complexity of surgery, and the need for skilled surgical aides teacher for positioning, draping, exposure, retraction, and closure of the wound.
--- NOTE | 2019-12-29 14:47 | XR ---
EXAMINATION TYPE: XR Hip Limited LT DATE OF EXAM: 12/29/2019 COMPARISON: NONE HISTORY: 54-year-old male left anterior hip replacement FINDINGS: Images show placement of left hip arthroplasty. FLUOROSCOPY Fluoroscopy time of 50 seconds was used during left anterior hip arthroplasty. 2 image/s document/s the procedure. IMPRESSION: Fluoroscopy as above.
[2019-12-29] MEDS ORDERED: LACTATED RINGERS 1,000 ML IV ONE ×2 (15:10)
--- NOTE | 2019-12-29 15:20 | XR ---
EXAMINATION TYPE: XR Hip Limited LT DATE OF EXAM: 12/29/2019 COMPARISON: NONE HISTORY: 54-year-old male status post hip surgery, assess surgical alignment TECHNIQUE: Single portable AP view FINDINGS: Image shows placement of left total hip arthroplasty. Acetabular cup and femoral stem components of t he prosthesis appear well seated without periprosthetic fracture. Alignment grossly anatomic. Some sc attered soft tissue air related to recent operation. IMPRESSION: Uncomplicated postoperative appearance left total hip arthroplasty.
[2019-12-29] MEDS: LACTATED RINGERS 1,000 ML IV SCH (16:01)
[2019-12-29] MEDS ORDERED: SENNOSIDES-DOCUSATE SODIUM 1 EACH TAB PO SCH (21:00)
[2019-12-29] MEDS: PANTOPRAZOLE 40 MG TABLET PO SCH (21:52)
[2019-12-29] MEDS: ASPIRIN 325 MG TAB PO SCH (21:52)
--- NOTE | 2019-12-29 21:52 | P.CONS ---
History of Present Illness - Reason for Consult Consult date: 12/29/19 Medical management Requesting physician: Geraldo Farrar - Chief Complaint Left hip repair - History of Present Illness Consultation: This is a pleasant 54-year-old patient of Dr. Alaina Adams. Chronic stable medical conditions include GERD, hypertension, osteoarthritis. Patient has undergone left total hip arthroplasty. Operative site is slightly numb. No nausea vomiting. Patient did try some popsicle. No nausea vomiting. No headache. No chest pain or shortness of breath. Sitting over the bed. Watching television. Review of systems: GEN.: None EYES: None HEENT: None NECK: None RESPIRATORY: None CARDIOVASCULAR: None GASTROINTESTINAL: None GENITOURINARY: None MUSCULOSKELETAL: Joint pains LYMPHATICS: None HEMATOLOGICAL: None PSYCHIATRY: None NEUROLOGICAL: None Past medical history to include: GERD, hypertension, osteoarthritis Social history: Does not smoke. Alcohol occasionally. . Works in the [employer] for [employer] on Physical examination: VITAL SIGNS: 98, 60, 18, 119/77, 95% on room air GENERAL: BMI 30.2, sitting up, comfortable. EYES: Pupils equal. Conjunctiva normal. HEENT: External appearance of nose and ears normal, oral cavity grossly normal. NECK: JVD not raised; masses not palpable. HEART: First and second heart sounds are normal; no edema. LUNGS: Respiratory rate normal; clear to auscultation. ABDOMEN: Soft, nontender, liver spleen not palpable, no masses palpable. PSYCH: Alert and oriented x3; mood and affect normal. NEUROLOGICAL: Cranial nerves grossly intact; no facial asymmetry, power and sensation grossly intact. MUSCULOSKELETAL: Dressing over the left hip incision site LYMPHATICS: No lymph nodes palpable in the axilla and neck INVESTIGATIONS, reviewed in the clinical context: White count 3.4 hemoglobin 14.5 potassium 4.2 creatinine 0.80 Assessment: -Left total hip arthroplasty -Primary osteoarthritis -GERD -Essential hypertension Plan: Home medications resumed. We'll continue with home medications. Patient is in aspirin for DVT prophylaxis per Dr. Farrar. Care was discussed with the patient. Questions were answered. Thank you Dr. Farrar Past Medical History Past Medical History: GERD/Reflux, Hypertension, Osteoarthritis (OA) Additional Past Medical History / Comment(s): no Rx for BP, sinus infection- currently on rx History of Any Multi-Drug Resistant Organisms: None Reported Past Surgical History: Orthopedic Surgery Additional Past Surgical History / Comment(s): nasal surgery, surgery for tendon injury middle finger left hand, egd, bone spurs removed rt ankle Past Anesthesia/Blood Transfusion Reactions: No Reported Reaction Past Psychological History: No Psychological Hx Reported Smoking Status: Never smoker Past Alcohol Use History: Occasional Past Drug Use History: None Reported - Past Family History Mother History Unknown: Yes Family Medical History: Cancer Medications and Allergies Home Medications Medication Instructions Recorded Confirmed Type Omeprazole 20 mg PO BID #60 cap 11/14/19 12/29/19 Rx Acetaminophen [Tylenol Extra 1,000 mg PO HS PRN 12/24/19 12/29/19 History Strength] Metoprolol Tartrate [Lopressor] 25 mg PO DAILY 12/24/19 12/29/19 History Allergies Allergy/AdvReac Type Severity Reaction Status Date / Time No Known Allergies Allergy Verified 12/29/19 11:34 Physical Exam Vitals: Vital Signs Temp Pulse Pulse Pulse Resp BP Pulse Ox 12/29/19 19:35 98.0 F 60 18 119/77 95 12/29/19 18:00 61 129/83 12/29/19 17:45 62 123/75 12/29/19 17:30 63 138/83 12/29/19 17:15 56 L 125/79 12/29/19 16:46 58 L 129/78 12/29/19 16:30 66 16 130/82 12/29/19 16:15 60 122/79 12/29/19 16:00 97.6 F 64 18 122/77 12/29/19 15:38 50 L 16 107/61 96 12/29/19 15:23 55 L 16 108/57 96 12/29/19 15:08 53 L 16 114/66 98 12/29/19 14:53 97.0 F L 70 16 118/68 97 12/29/19 11:41 97.6 F 73 16 159/92 98 12/29/19 05:00 57 L 125/76 Intake and Output 12/29/19 12/29/19 12/29/19 06:59 14:59 22:59 Intake Total 1001 350 Output Total 200 Balance 801 350 Intake: IV 1001 350 Output: Estimated Blood Loss 200 Other: Weight 92.7 kg 92.7 kg Results CBC & Chem 7: 12/26/19 12:33 12/26/19 12:33 Labs: Microbiology - Last 24 Hours (Table) 12/26/19 12:33 Nasal Screen MRSA/MSSA - Final Nasal Swab Staphylococcus aureus
[2019-12-30] MEDS: LACTATED RINGERS 1,000 ML IV SCH (00:44)
[2019-12-30] MEDS: ACETAMINOPHEN TAB 325 MG TAB PO PRN ×2 (04:56→08:41)
[2019-12-30 07:49] LABS: Basophils % (A) 0 %; Eosinophils % (A) 0 %; HCT 36.5 % (39.0-53.0); HGB 11.9 gm/dL (13.0-17.5); Lymphocytes % (A) 10 %; MCH 29.8 pg (25.0-35.0); MCHC 32.5 g/dL (31.0-37.0); MCV 91.7 fL (80.0-100.0); Mean Platelet Volume 7.2; Monocytes # (A) 0.5 k/uL (0-1.0); Monocytes % (A) 5 %; Neutrophils # (A) 7.8 k/uL (1.3-7.7); Neutrophils % (A) 83 %; Platelet Count 188 k/uL (150-450); RBC 3.98 m/uL (4.30-5.90); RDW 12.5 % (11.5-15.5); WBC 9.3 k/uL (3.8-10.6)
[2019-12-30 08:23] VITALS: BP 126/74; PULSE 50; RESP 17; TEMP 98.1
[2019-12-30] MEDS: PANTOPRAZOLE 40 MG TABLET PO SCH (08:38)
[2019-12-30] MEDS: ASPIRIN 325 MG TAB PO SCH (08:38)
[2019-12-30] MEDS ORDERED: METOPROLOL TARTRATE 25 MG TAB PO SCH (09:00)
--- NOTE | 2019-12-30 10:52 | P.DS ---
Providers Expected date of discharge: 12/30/19 Attending physician: Geraldo Farrar Consults: 12/29/19 13:06 Consult Physician Routine Consulting Provider: German Mcarthur Consult Reason/Comments: post op medical management Do you want consulting provider notified?: Yes Primary care physician: Tiffany Adams - Discharge Diagnosis(es) (1) S/P total hip arthroplasty Patient was admitted to the OR on 12/29/2019 to undergo a left total hip arthroplasty. He had failed conservative measures as an outpatient and desired to proceed with elective surgery after given informed consent. He underwent the above procedure which he tolerated well without complication. Postoperative hospital course has remained without complication. On day of discharge he is afebrile, vital signs stable, labs within acceptable ranges, tolerating by mouth meds and diet, voiding without difficulty, positive flatus, denies abdominal pain or calf pain, pain is controlled on oral pain medication and has no new complaints. Wound is benign, neurovascular status is intact, calf is soft and nontender, abdomen soft and nontender. Review of systems is negative for numbness, tingling, fever, chills, chest pain, shortness of breath, nausea, vomiting, dizziness, headaches, slurred speech or other Current Visit: Yes Status: Acute Priority: Medium Procedures: Left HILLARY Patient Condition at Discharge: Good Plan - Discharge Summary Discharge Rx Participant: No New Discharge Prescriptions: New Aspirin 325 mg PO BID #60 tab HYDROcodone/APAP 7.5-325MG [Porter 7.5-325] 1 - 2 each PO Q6HR PRN #56 tab PRN Reason: Pain No Action Omeprazole 20 mg PO BID #60 cap Metoprolol Tartrate [Lopressor] 25 mg PO DAILY Acetaminophen [Tylenol Extra Strength] 1,000 mg PO HS PRN PRN Reason: Pain Discharge Medication List Omeprazole 20 mg PO BID #60 cap 11/14/19 [Rx] Acetaminophen [Tylenol Extra Strength] 1,000 mg PO HS PRN 12/24/19 [History] Metoprolol Tartrate [Lopressor] 25 mg PO DAILY 12/24/19 [History] Aspirin 325 mg PO BID #60 tab 12/30/19 [Rx] HYDROcodone/APAP 7.5-325MG [Porter 7.5-325] 1 - 2 each PO Q6HR PRN #56 tab 12/30/19 [Rx] Follow up Appointment(s)/Referral(s): Geraldo Farrar DO [Doctor of Osteopathic Medicine] - 01/12/20 2:45 pm Activity/Diet/Wound Care/Special Instructions: Keep wound clean and dry Take meds as directed Follow-up with Dr. Farrar in office Weight bear as tolerated May shower in 3 days if no bleeding Discharge Disposition: HOME WITH HOME HEALTH SERVICES
[2019-12-30] MEDS ORDERED: MULTIVITAMINS, THERA 1 EACH TAB PO SCH (12:00)
--- NOTE | 2019-12-31 20:59 | P.PN ---
Progress Note - Text Progress Note Date: 12/30/19 - Chief Complaint Left hip repair Consultation: This is a pleasant 54-year-old patient of Dr. Alaina Adams. Chronic stable medical conditions include GERD, hypertension, osteoarthritis. Patient has undergone left total hip arthroplasty. Operative site is slightly numb. No nausea vomiting. Patient did try some popsicle. No nausea vomiting. No headache. No chest pain or shortness of breath. Sitting over the bed. Watching television. Today-doing well. Pain well controlled. No nausea vomiting. Did ambulate. No new issues. Review of systems: Was done for constitutional, cardiovascular, GI, pulmonary. relevant finding as above Current medications reviewed in today's electronic records Physical examination: VITAL SIGNS: 98.1, 50, 17, 126/74, 97% on room air GENERAL:, sitting up in the chair, comfortable. EYES: Pupils equal. Conjunctiva normal. HEENT: External appearance of nose and ears normal, oral cavity grossly normal. NECK: JVD not raised; masses not palpable. HEART: First and second heart sounds are normal; no edema. LUNGS: Respiratory rate normal; clear to auscultation. ABDOMEN: Soft, nontender, liver spleen not palpable, no masses palpable. PSYCH: Alert and oriented x3; mood and affect normal. NEUROLOGICAL: Cranial nerves grossly intact; no facial asymmetry, power and sensation grossly intact. MUSCULOSKELETAL: Dressing over the left hip incision site INVESTIGATIONS, reviewed in the clinical context: White count 9.3 hemoglobin 11.9 Previous testing White count 3.4 hemoglobin 14.5 potassium 4.2 creatinine 0.80 Assessment: -Left total hip arthroplasty -Primary osteoarthritis -GERD -Essential hypertension -Acute postprocedure blood loss anemia, as expected from surgery Plan: Stable. Continue current medication. Follow with PCP upon discharge. Thank you Dr. Farrar
== END 2019-12-30 13:27 | disposition home health service (06) ==
LOC: OR 11:20 → 4SSUR 15:45 → OR 12-30 13:27
PROVIDERS: ATTEND Orthopaedic Surgery
DX: M16.12 Unilateral primary osteoarthritis, left hip (principal); N28.1 Cyst of kidney, acquired; I10 Essential (primary) hypertension; R00.0 Tachycardia, unspecified; K21.9 Gastro-esophageal reflux disease without esophagitis; Z98.890 Other specified postprocedural states; Z83.3 Family history of diabetes mellitus; Z82.49 Family history of ischemic heart disease and other diseases of the circulatory system; Z79.899 Other long term (current) drug therapy; Z79.891 Long term (current) use of opiate analgesic; Z97.3 Presence of spectacles and contact lenses
CPT/HCPCS: 27130; 97161; 97165; 86891; 85025; 88300; 73501; C1776; J2250; J0171; J1200; J1100; J0690 ×3; J2405; J2001; J3010; J1885; J1170; J2795; J2704; J0735; 80053; 81001; 85027; 85610; 85730; 86850; 86900; 86901; 87070; 93005

== ENCOUNTER → 2020-03-17 | Outpatient (CLI) | payer BC ==
--- NOTE | 2020-03-18 06:57 | US ---
EXAMINATION TYPE: US kidneys/renal and bladder DATE OF EXAM: 03/17/2020 COMPARISON: CT Chest CLINICAL HISTORY: N28.1 Atypical renal cyst. Pt states right renal cyst visualized on outside ultraso und EXAM MEASUREMENTS: Right Kidney: 10.1 x 6.2 x 5.6 cm Left Kidney: 12.3 x 5.8 x 5.0 cm Right Kidney: No evidence of hydro, possible renal calculus mid= 0.5 cm/ adjacent to possible renal c alculus there is a hypoechoic area, ?lobulation of renal tissue rather than cyst Left Kidney: No evidence of hydro, possible renal calculus mid= 0.7 cm Bladder: wnl Bilateral Jets seen: Yes IMPRESSION: Bilateral nephrolithiasis. There is lobulation of the right kidney which may represent a dromedary hu mp. No definite renal cyst is seen. CT scan of the abdomen is recommended for further evaluation.
== END | disposition home or self-care (01) ==
LOC: RADUSWWP 16:10
PROVIDERS: ATTEND Urology
DX: N20.0 Calculus of kidney (principal); Q63.1 Lobulated, fused and horseshoe kidney
CPT/HCPCS: 76770

== ENCOUNTER → 2020-03-30 | Outpatient (CLI) | payer BC ==
--- NOTE | 2020-03-31 08:27 | CT ---
EXAMINATION TYPE: CT abdomen wo/w con DATE OF EXAM: 03/30/2020 COMPARISON: Ultrasound 03/17/2020 HISTORY: renal cyst, abnormal renal ultrasound CT DLP: 1567.6 mGycm Automated exposure control for dose reduction was used. TECHNIQUE: Helical acquisition of images was performed from the lung bases through the top of iliac crest to include entire abdomen. CONTRAST: Performed with Oral Contrast and without and with IV Contrast, patient injected with 100 mL of Isovue 300. FINDINGS: LUNG BASES: Nodular density on axial image #4 the right lower lobe measures only 2 to 3 mm, focus of increased attenuation seen on axial image 5 is associated with the fissure is likely not of clinical significance measures only 7 8 mm.. LIVER/GB: Low-attenuation within the liver could be due to underlying hepatic steatosis, gallbladder is normal. PANCREAS: No significant abnormality is seen. SPLEEN: No significant abnormality is seen. ADRENALS: No significant abnormality is seen. KIDNEYS: Corresponding to the ultrasound abnormality in the midpole the right kidney there is a focus of increased attenuation on precontrast images measuring approximately 14 mm, increased density is a lso noted on postcontrast images at this level, Hounsfield unit measurements approximately 80. There is no hydronephrosis bilaterally. No evident ureteral calculus. Normal renal excretion is noted. Hypo dense focus within the posterior left kidney on axial image 21 delayed postcontrast images is subcent imeter in size and indeterminate. BOWEL: No significant abnormality is seen. LYMPH NODES: No significant abnormality is appreciated. OSSEOUS STRUCTURES: No significant abnormality is seen. FREE AIR: No Free Air visible ASCITES: None visible. RETROPERITONEAL ADENOPATHY: No Retroperitoneal Adenopathy visible. OTHER: IMPRESSION: INDETERMINATE FOCUS OF INCREASED ATTENUATION INVOLVING THE MIDPOLE THE RIGHT KIDNEY DESCRIBED COUL D POSSIBLY REPRESENT PROTEINACEOUS CYST, FOLLOW-UP IS RECOMMENDED TO ASSESS FOR STABILITY. INDETERMIN ATE LUNG NODULES RIGHT LUNG BASE OF QUESTIONABLE CLINICAL SIGNIFICANCE. POSSIBLE HEPATIC STEATOSIS.
== END | disposition home or self-care (01) ==
LOC: RADCTMAIN 15:41
PROVIDERS: ATTEND Urology
DX: R93.421 Abnormal radiologic findings on diagnostic imaging of right kidney (principal); N28.1 Cyst of kidney, acquired
CPT/HCPCS: 74170; Q9967

== ENCOUNTER → 2021-07-12 | Outpatient (CLI) | payer BC ==
--- NOTE | 2021-07-12 14:25 | US ---
EXAMINATION TYPE: US kidneys/renal and bladder DATE OF EXAM: 07/12/2021 COMPARISON: Ultrasound 03/17/[address] 03/30/2020 CLINICAL HISTORY: 56-year-old male N28.1 follow-up Renal Cyst. TECHNIQUE: Multiple sonographic images of the kidneys and bladder are obtained. FINDINGS: EXAM MEASUREMENTS: Right Kidney: 10.1 x 5.9 x 5.5 cm Left Kidney: 12.5 x 5.6 x 5.5 cm Right Kidney: Cyst at the midpole with slight internal echoes 1.7 x 1.4 x 1.3 cm Left Kidney: wnl No hydronephrosis on either side. Bladder: wnl Bilateral Jets seen: Yes IMPRESSION: 1. Cyst at the right kidney midpole measuring 1.7 cm and shows some interval clearance of the previou s internal debris/hemorrhagic material. Some mild internal debris remains. Additional 6 month follow ultrasound recommended to reassess. 2. No hydronephrosis.
== END | disposition home or self-care (01) ==
LOC: RADUSWWP 12:35
PROVIDERS: ATTEND Urology
DX: N28.1 Cyst of kidney, acquired (principal)
CPT/HCPCS: 76770

== ENCOUNTER → 2022-08-17 | Outpatient (CLI) | payer BC ==
--- NOTE | 2022-08-17 15:38 | US ---
EXAMINATION TYPE: US kidneys/renal and bladder DATE OF EXAM: 08/17/2022 COMPARISON: NONE CLINICAL HISTORY: N28.1 right renal cyst. EXAM MEASUREMENTS: Right Kidney: 9.9 x 5.6 x 4.9 cm Left Kidney: 12.1 x 5.8 x 5.1 cm Technically difficult due to overlying bowel gas. Right Kidney: Superior pole obscured by bowel gas, cyst measuring 2.1 x 1.9 x 1.9cm, previous measure ment 1.7 x 1.4 x 1.3 cm. Left Kidney: No hydronephrosis or masses seen Bladder: wnl Left jet seen, right jet not seen. IMPRESSION: 1. Enlarging cyst like area mid right kidney
== END | disposition home or self-care (01) ==
LOC: RADUSWWP 13:26
PROVIDERS: ATTEND Urology
DX: N28.1 Cyst of kidney, acquired (principal)
CPT/HCPCS: 76770; 84153

== ENCOUNTER 2023-04-05 10:14 | Emergency (ER) | payer BC ==
[2023-04-05] MEDS ORDERED: SODIUM CHLORIDE 0.9% 1,000 ML IV STA (10:38)
[2023-04-05] MEDS ORDERED: ACETAMINOPHEN TAB 500 MG TAB PO STA (10:38)
--- NOTE | 2023-04-05 11:32 | ED ---
General Adult HPI - General Chief complaint: Shortness of Breath Stated complaint: JULES Time Seen by Provider: 04/05/23 10:19 Source: patient, RN notes reviewed Mode of arrival: ambulatory Limitations: no limitations - History of Present Illness Initial comments: 57-year-old male presents emergency Department chief complaint of shortness of breath. Patient states he has been on 2 rounds of steroids from Dr. Zuniga for pleurisy. Patient states that symptoms haven't ongoing for with this pleurisy for over a month. Patient states he did not resume the fever he does complain of diffuse body aches, muscle cramps. Patient denies any sneezing and sore t hroat has mild congestion and mild headache. He has not had any recent Tylenol or Motrin. - Related Data Home Medications Medication Instructions Recorded Confirmed Metoprolol Tartrate [Lopressor] 25 mg PO DAILY 04/05/23 04/05/23 Previous Rx's Medication Instructions Recorded Omeprazole 20 mg PO BID #60 cap 11/14/19 Azithromycin [Zithromax Z Pack] 0 tab PO DIRECTED #6 tab 04/05/23 Allergies Allergy/AdvReac Type Severity Reaction Status Date / Time No Known Allergies Allergy Verified 04/05/23 10:30 Review of Systems ROS Statement: Those systems with pertinent positive or pertinent negative responses have been documented in the HPI. ROS Other: All systems not noted in ROS Statement are negative. Past Medical History Past Medical History: GERD/Reflux, Hypertension, Osteoarthritis (OA) Additional Past Medical History / Comment(s): no Rx for BP, sinus infection- currently on rx History of Any Multi-Drug Resistant Organisms: None Reported Past Surgical History: Orthopedic Surgery Additional Past Surgical History / Comment(s): nasal surgery, surgery for tendon injury middle finger left hand, egd, bone spurs removed rt ankle Past Anesthesia/Blood Transfusion Reactions: No Reported Reaction Past Psychological History: No Psychological Hx Reported Past Alcohol Use History: Occasional Past Drug Use History: None Reported - Past Family History Mother History Unknown: Yes Family Medical History: Cancer General Exam Limitations: no limitations General appearance: alert, in no apparent distress Head exam: Present: atraumatic, normocephalic, normal inspection Eye exam: Present: normal appearance, PERRL, EOMI. Absent: scleral icterus, conjunctival injection, periorbital swelling ENT exam: Present: normal exam, normal oropharynx, mucous membranes moist Neck exam: Present: normal inspection, full ROM. Absent: tenderness, meningismus, lymphadenopathy Respiratory exam: Present: normal lung sounds bilaterally. Absent: respiratory distress, wheezes, rales, rhonchi, stridor Cardiovascular Exam: Present: regular rate, normal rhythm, normal heart sounds. Absent: systolic murmur, diastolic murmur, rubs, gallop, clicks GI/Abdominal exam: Present: soft, normal bowel sounds. Absent: distended, tenderness, guarding, rebound, rigid Course Vital Signs 04/05/23 04/05/23 04/05/23 10:16 11:20 12:00 Temperature 100.9 F H 101.1 F H 98.5 F Pulse Rate 78 85 77 Respiratory 16 16 18 Rate Blood Pressure 148/81 136/89 138/75 O2 Sat by Pulse 96 95 99 Oximetry 04/05/23 13:50 Temperature 98.0 F Pulse Rate 74 Respiratory 16 Rate Blood Pressure 130/83 O2 Sat by Pulse 97 Oximetry EKG Findings - EKG Comments: EKG Findings:: EKG performed at 10:28 sinus rhythm rate of 76 NH 132 QRS 88 QT/QTC 321 12/30/1950 there is minimal elevation in inferior leads. Repeat EKG 11:43 sinus rhythm rate of 81. 1:30 QRS 92 QT/QTC 340/377 and changes from previous EKG - EKG Results: EKG: interpreted by JUAN JOSE Medical Decision Making - Medical Decision Making Was pt. sent in by a medical professional or institution (, PA, DENTAL SCHEDULING COORDINATOR, urgent care, hospital, or retirement...) When possible be specific @ -No Did you speak to anyone other than the patient for history (EMS, parent, family, police, friend...)? What history was obtained from this source @ -No Did you review nursing and triage notes (agree or disagree)? Why? @ -I reviewed and agree with nursing and triage notes Were old charts reviewed (outside hosp., previous admission, EMS record, old EKG, old radiological studies, urgent care reports/EKG's, retirement records)? Report findings @ -No old charts were reviewed Differential Diagnosis (chest pain, altered mental status, abdominal pain women, abdominal pain men, vaginal bleeding, weakness, fever, dyspnea, syncope, headache, dizziness, GI bleed, back pain, seizure, CVA, palpatations, mental health, musculoskeletal)? @ -nDifferential Dyspnea: Coronary syndrome, arrhythmia, tamponade, asthma, COPD, pulmonary embolism, pneumonia, pneumothorax, pulmonary effusion, anaphylaxis, diabetic ketoacidosis, flailed chest, pulmonary contusion, diaphragmatic rupture, anemia, neuromuscular, this is not meant to be an all-inclusive list. able EKG interpreted by me (3pts min.). @ -As above X-rays interpreted by me (1pt min.). @ -Chest x-ray shows evidence of pneumonia CT interpreted by me (1pt min.). @ -None done U/S interpreted by me (1pt. min.). @ -None done What testing was considered but not performed or refused? (CT, X-rays, U/S, labs)? Why? @ -None What meds were considered but not given or refused? Why? @ -None Did you discuss the management of the patient with other professionals (professionals i.e. , PA, DENTAL SCHEDULING COORDINATOR, lab, RT, psych nurse, social media project manager, manufacturing engineering intern, te acher, donor relations officer, therapeutic case manager)? Give summary @ -No Was smoking cessation discussed for >3mins.? @ -No Was critical care preformed (if so, how long)? @ -No Were there social determinants of health that impacted care today? How? (Homelessness, low income, unemployed, alcoholism, drug addiction, transportation, low edu. Level, literacy, decrease access to med. care, senior living, rehab)? @ -No Was there de-escalation of care discussed even if they declined (Discuss DNR or withdrawal of care, Hospice)? DNR status @ -No What co-morbidities impacted this encounter? (DM, HTN, Smoking, COPD, CAD, Cancer, CVA, ARF, Chemo, Hep., AIDS, mental health diagnosis, sleep apnea, morbid obesity)? @ -Pleurisy, Was patient admitted / discharged? Hospital course, mention meds given and route, prescriptions, significant lab abnormalities, going to OR and other pertinent info. @ -Discharge patient has evidence of pneumonia, laboratory studies, EKG, troponin, Route testing otherwise negative. Patient discharged after Rocephin, azithromycin Undiagnosed new problem with uncertain prognosis? @ -No Drug Therapy requiring intensive monitoring for toxicity (Heparin, Nitro, Insulin, Cardizem)? @ -No Were any procedures done? @ -No Diagnosis/symptom? @ -Pneumonia Acute, or Chronic, or Acute on Chronic? @ -Acute Uncomplicated (without systemic symptoms) or Complicated (systemic symptoms)? @ -[complicated Side effects of treatment? @ -No Exacerbation, Progression, or Severe Exacerbation? @ -No Poses a threat to life or bodily function? How? (Chest pain, [place], [place], pneumonia, PE, COPD, DKA, ARF, appy, cholecystitis, CVA, Diverticulitis, Homicidal, Suicidal, threat to staff... and all critical care pts) @ -No - Lab Data Result diagrams: 04/05/23 11:25 04/05/23 11:25 Lab Results 04/05/23 04/05/23 04/05/23 Range/Units 11:25 11:25 11:25 WBC 6.5 (3.8-10.6) k/uL RBC 4.79 (4.30-5.90) m/uL Hgb 15.0 (13.0-17.5) gm/dL Hct 45.3 (39.0-53.0) % MCV 94.4 (80.0-100.0) fL MCH 31.4 (25.0-35.0) pg MCHC 33.2 (31.0-37.0) g/dL RDW 12.1 (11.5-15.5) % Plt Count 282 (150-450) k/uL MPV 7.0 Neutrophils % 79 % Lymphocytes % 9 % Monocytes % 7 % Eosinophils % 2 % Basophils % 0 % Neutrophils # 5.1 (1.3-7.7) k/uL Lymphocytes # 0.6 L (1.0-4.8) k/uL Monocytes # 0.5 (0-1.0) k/uL Eosinophils # 0.1 (0-0.7) k/uL Basophils # 0.0 (0-0.2) k/uL PT 10.1 (9.0-12.0) sec INR 0.9 (<1.2) APTT 23.0 (22.0-30.0) sec Sodium 136 L (137-145) mmol/L Potassium 4.7 (3.5-5.1) mmol/L Chloride 101 (98-107) mmol/L Carbon Dioxide 28 (22-30) mmol/L Anion Gap 7 mmol/L BUN 9 (9-20) mg/dL Creatinine 0.88 (0.66-1.25) mg/dL Est GFR (CKD-EPI)AfAm >90 (>60 ml/min/1.73 sqM) Est GFR (CKD-EPI)NonAf >90 (>60 ml/min/1.73 sqM) Glucose 115 H (74-99) mg/dL Plasma Lactic Acid Ron (0.7-2.0) mmol/L Calcium 9.2 (8.4-10.2) mg/dL Magnesium 2.0 (1.6-2.3) mg/dL Total Bilirubin 0.7 (0.2-1.3) mg/dL AST 24 (17-59) U/L ALT 26 (4-49) U/L Alkaline Phosphatase 96 (38-126) U/L Troponin I (0.000-0.034) ng/mL Total Protein 7.4 (6.3-8.2) g/dL Albumin 3.7 (3.5-5.0) g/dL Influenza Type A (PCR) (Not Detectd) Influenza Type B (PCR) (Not Detectd) RSV (PCR) (Not Detectd) SARS-CoV-2 (PCR) (Not Detectd) 04/05/23 04/05/23 04/05/23 Range/Units 11:25 11:25 11:25 WBC (3.8-10.6) k/uL RBC (4.30-5.90) m/uL Hgb (13.0-17.5) gm/dL Hct (39.0-53.0) % MCV (80.0-100.0) fL MCH (25.0-35.0) pg MCHC (31.0-37.0) g/dL RDW (11.5-15.5) % Plt Count (150-450) k/uL MPV Neutrophils % % Lymphocytes % % Monocytes % % Eosinophils % % Basophils % % Neutrophils # (1.3-7.7) k/uL Lymphocytes # (1.0-4.8) k/uL Monocytes # (0-1.0) k/uL Eosinophils # (0-0.7) k/uL Basophils # (0-0.2) k/uL PT (9.0-12.0) sec INR (<1.2) APTT (22.0-30.0) sec Sodium (137-145) mmol/L Potassium (3.5-5.1) mmol/L Chloride (98-107) mmol/L Carbon Dioxide (22-30) mmol/L Anion Gap mmol/L BUN (9-20) mg/dL Creatinine (0.66-1.25) mg/dL Est GFR (CKD-EPI)AfAm (>60 ml/min/1.73 sqM) Est GFR (CKD-EPI)NonAf (>60 ml/min/1.73 sqM) Glucose (74-99) mg/dL Plasma Lactic Acid Ron 1.7 (0.7-2.0) mmol/L Calcium (8.4-10.2) mg/dL Magnesium (1.6-2.3) mg/dL Total Bilirubin (0.2-1.3) mg/dL AST (17-59) U/L ALT (4-49) U/L Alkaline Phosphatase (38-126) U/L Troponin I <0.012 (0.000-0.034) ng/mL Total Protein (6.3-8.2) g/dL Albumin (3.5-5.0) g/dL Influenza Type A (PCR) Not Detected (Not Detectd) Influenza Type B (PCR) Not Detected (Not Detectd) RSV (PCR) Not Detected (Not Detectd) SARS-CoV-2 (PCR) Not Detected (Not Detectd) Disposition Clinical Impression: Pneumonia Disposition: HOME SELF-CARE Condition: Stable Instructions (If sedation given, give patient instructions): Pneumonia (ED) Additional Instructions: Please return to the Emergency Department if symptoms worsen or any other concerns. Prescriptions: Azithromycin [Zithromax Z Pack] 0 tab PO DIRECTED #6 tab Is patient prescribed a controlled substance at d/c from ED?: No Referrals: Luis Cruz MD [Primary Care Provider] - 1-2 days Time of Disposition: 12:57
--- NOTE | 2023-04-05 11:43 | XR ---
EXAMINATION TYPE: XR chest 2V DATE OF EXAM: 04/05/2023 COMPARISON: 11/30/2019 and 03/02/2023 HISTORY: 57-year-old male shortness of breath, difficulty breathing TECHNIQUE: PA and lateral views FINDINGS: The cardiomediastinal silhouette, aorta, and pulmonary vasculature are within normal limits. Strandy scar atelectasis left base. There is some focal density posterior costophrenic angle on the lateral v iew. IMPRESSION: Some focal density at the posterior costophrenic angle on the lateral view could represent a trace ef fusion or some patchy atelectasis or early infiltrate.
[2023-04-05] MEDS ORDERED: IBUPROFEN 600 MG TAB PO STA (11:45)
[2023-04-05 12:21] LABS: Basophils % (A) 0 %; Eosinophils # (A) 0.1 k/uL (0-0.7); Eosinophils % (A) 2 %; HCT 45.3 % (39.0-53.0); Lymphocytes # (A) 0.6 k/uL (1.0-4.8); Lymphocytes % (A) 9 %; MCH 31.4 pg (25.0-35.0); MCHC 33.2 g/dL (31.0-37.0); MCV 94.4 fL (80.0-100.0); Monocytes # (A) 0.5 k/uL (0-1.0); Monocytes % (A) 7 %; Neutrophils # (A) 5.1 k/uL (1.3-7.7); Neutrophils % (A) 79 %; Platelet Count 282 k/uL (150-450); RBC 4.79 m/uL (4.30-5.90); RDW 12.1 % (11.5-15.5); WBC 6.5 k/uL (3.8-10.6)
[2023-04-05 12:25] LABS: ALT 26 U/L (4-49); AST 24 U/L (17-59); African American GFR (CKD) >90 (>60 ml/min/1.73 sqM); Albumin 3.7 g/dL (3.5-5.0); Alkaline Phosphatase 96 U/L (38-126); Anion Gap 7 mmol/L; Blood Urea Nitrogen 9 mg/dL (9-20); Calcium 9.2 mg/dL (8.4-10.2); Carbon Dioxide 28 mmol/L (22-30); Chloride 101 mmol/L (98-107); Glucose 115 mg/dL (74-99); Non-African American GFR(CKD) >90 (>60 ml/min/1.73 sqM); Potassium 4.7 mmol/L (3.5-5.1); Sodium 136 mmol/L (137-145); Total Bilirubin 0.7 mg/dL (0.2-1.3); Total Protein 7.4 g/dL (6.3-8.2)
[2023-04-05 12:52] LABS: INR 0.9 (<1.2); Prothrombin Time 10.1 sec (9.0-12.0)
[2023-04-05] MEDS ORDERED: cefTRIAXone IN SWFI 1,000 MG/10 ML SYRINGE IVP STA (12:56)
[2023-04-05] MEDS ORDERED: AZITHROMYCIN 250 MG TAB PO STA (12:57)
[2023-04-05 13:55] VITALS: BP 130/83; PULSE 74; RESP 16; TEMP 98
== END 2023-04-05 13:50 | disposition home or self-care (01) ==
LOC: EC 10:14
DX: R06.02 Shortness of breath (principal); J18.9 Pneumonia, unspecified organism; K21.9 Gastro-esophageal reflux disease without esophagitis; I10 Essential (primary) hypertension; M19.90 Unspecified osteoarthritis, unspecified site; Z79.899 Other long term (current) drug therapy; Z20.822 Contact with and (suspected) exposure to COVID-19
CPT/HCPCS: 36415; 93005; 80053; 83605; 83735; 84484; 85025; 85610; 85730; 87636; 71046; 99285; 96374; 96361; J0696

== ENCOUNTER → 2023-08-31 | Outpatient (CLI) | payer BC ==
--- NOTE | 2023-08-31 18:00 | CT ---
EXAMINATION TYPE: CT sinus wo con DATE OF EXAM: 08/31/2023 COMPARISON: None HISTORY: sinusitis CT DLP: 587.[address] of the paranasal sinuses was performed in the axial and coronal planes. Bone and soft tissue settings are submitted. The paranasal sinuses demonstrate normal aeration and development. There is mucosal thickening noted to involve the frontal sinuses and scattered ethmoid air cells. Pos toperative changes of partial ethmoidectomy and medial maxillary antrectomy. The osteal meatal units are patent bilaterally. The nasal septum is midline. No bony destructive changes are seen within the field of view. IMPRESSION: Changes of chronic sinusitis.
== END | disposition home or self-care (01) ==
LOC: RADCTMAIN 16:39
PROVIDERS: ATTEND Otolaryngology
DX: J32.9 Chronic sinusitis, unspecified (principal)
CPT/HCPCS: 70486

== ENCOUNTER → 2023-11-02 | Outpatient (CLI) | payer BC ==
--- NOTE | 2023-11-02 09:44 | CT ---
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 E xtreme joint pain. CT DLP: 458.10 mGycm, Automated exposure control for dose reduction was used. CONTRAST: Performed injected with 100 mL of Isovue 300. TECHNIQUE: Axial images were obtained at 5 mm thick sections. Reconstructed images are reviewed on Marqui computer in the coronal plane. FINDINGS: Portion of the thyroid visualized is normal. Minimal right pleural effusion is present. No enlarged mediastinal or hilar adenopathy is evident. There are multiple scattered small lymph no ho less than 1 cm within the mediastinum and right hilum. The ascending aorta diameter at the level of the main pulmonary artery is 3.8 cm. The main pulmonary artery diameter at the bifurcation is 2.[address] sections are obtained through the upper abdomen. Abdomen is essentially unremarkable. IMPRESSION: 1. Minimal right pleural effusion. 2. Scattered shotty lymphadenopathy within the mediastinum. No enlarged lymphadenopathy evident
== END | disposition home or self-care (01) ==
LOC: RADCTMAIN 07:22
PROVIDERS: ATTEND Internal Medicine Rheumatology
DX: J90 Pleural effusion, not elsewhere classified (principal); I77.82 Antineutrophilic cytoplasmic antibody [ANCA] vasculitis; R59.1 Generalized enlarged lymph nodes
CPT/HCPCS: 71260; Q9967

== ENCOUNTER → 2024-08-21 | Outpatient (CLI) | payer BC ==
--- NOTE | 2024-08-22 14:44 | CT ---
EXAMINATION TYPE: CT sinus wo con DATE OF EXAM: 08/21/2024 2:23 PM COMPARISON: 08/31/2023 CLINICAL INDICATION: Male, 59 years old with history of J32.0 CHRONIC SINUSITIS, Chronic sinusitis. TECHNIQUE: The paranasal sinuses are examined in the axial plane at 2 mm thick sections. Reconstruct ed images in the coronal plane were obtained. Contrast used: mL of , (none if empty) Oral contrast used: (none if empty) CT DLP: 605.9 mGycm, Automated exposure control for dose reduction was used. FINDINGS: There is dental amalgam scatter artifact. There is prior uncinectomies. Ethmoidectomies been performe d. The maxillary sinuses are clear. The ethmoid air cells are clear. The sphenoid sinuses are clear. Some mucosal thickening is within the right lateral frontal sinuses. Some mucosal thickenings within the superior mid right ethmoid region. Mild thickening is within the bilateral maxillary sinuses. Mas toid air cells are clear. The septum is evaluated. There is left septal deviation. . The ostiomeatal units are patent. IMPRESSION: 1. Postsurgical changes within the paranasal sinuses. 2. Mucosal thickening within the bilateral maxillary sinuses mid ethmoid air cell region and right fr ontal sinuses. 3. Left septal deviation [facility], , 08/22/2024 2:42 PM
== END | disposition home or self-care (01) ==
LOC: RADCTMAIN 14:07
PROVIDERS: ATTEND Otolaryngology
DX: J32.0 Chronic maxillary sinusitis (principal); J34.2 Deviated nasal septum; Z98.890 Other specified postprocedural states
CPT/HCPCS: 70486

== ENCOUNTER → 2025-02-05 | Outpatient (CLI) | payer BC ==
--- NOTE | 2025-02-05 12:11 | XR ---
EXAMINATION TYPE: XR KUB DATE OF EXAM: 02/05/2025 10:43 AM COMPARISON: None CLINICAL INDICATION: Male, 59 years old with history of N20.0 CLACULUS OF KIDNEY; TECHNIQUE: One radiographic view of the abdomen was obtained. FINDINGS: The bowel gas pattern is nonspecific without dilated loops of small or large bowel. . Fecal material and gas are demonstrated throughout the colon and rectum. There is no evidence for organome messi or pneumoperitoneum. No acute osseous process. No abnormal calcifications are present. Left hi p arthroplasty with calcification. Moderate right hip osteoporosis with CAM deformity to the femoral head. Mild multilevel degeneration changes of the spine. IMPRESSION: 1. No renal calculi definitively visualized. Consider CT renal stone protocol. 2. Nonspecific bowel gas pattern without radiographic evidence for acute process. [facility], , 02/05/2025 12:09 PM
== END | disposition home or self-care (01) ==
LOC: RADXRMAIN 10:12
PROVIDERS: ATTEND Urology
DX: N20.0 Calculus of kidney (principal)
CPT/HCPCS: 74018

== ENCOUNTER → 2025-02-16 | Outpatient (CLI) | payer BC ==
--- NOTE | 2025-02-18 12:04 | CT ---
EXAMINATION TYPE: CT abdomen pelvis wo con DATE OF EXAM: 02/16/2025 11:58 AM COMPARISON: 03/30/2020 , ultrasound 08/17/2022 CLINICAL INDICATION: Male, 59 years old with history of N23,N28.1 CYST OF KIDNEY, ACQUIRED, LEFT FLAN K PAIN/KNOWN RT RENAL CYST TECHNIQUE: Axial images were obtained from above the diaphragm to the pubic rami in the axial plane a t 5 mm thick sections. Reconstructed images are reviewed on the computer in the coronal plane. CONTRAST: mL of . Study performed without Oral Contrast DLP: 756 mGycm, Automated exposure control for dose reduction was used. FINDINGS: Limited CT sections are obtained the lung bases. The lung bases are clear. CT ABDOMEN: Liver: Normal Spleen: Normal Pancreas: Normal Adrenal glands: The adrenal glands are normal. Gallbladder: Normal Kidneys: There is a vague ill-defined hypodensity within the lateral right mid kidney, series 3 image 18. This may correlate with the previous ultrasound cyst. No hydronephrosis is present. No cysts are present. No renal stones evident. Aorta: Vascular calcification is within the aorta. Inferior vena cava: Normal. CT PELVIS: Lower pelvis is limited due to beam hardening artifact from left hip prosthesis. Loops of bowel within the abdomen and pelvis are normal. Couple of diverticuli without acute divertic ulitis are within the sigmoid colon This study is without oral contrast limiting bowel evaluation. Appendix: Normal as visualized. Urinary bladder: Normal. Genitourinary structures: The prostate contains calcification. Osseous structures: No suspicious lytic or sclerotic lesions. IMPRESSION: 1. No suspicious abnormality to account for left flank pain. 2. Faintly visualized previously known right renal cyst. Continued Follow-up with ultrasound recommen ded. [facility], Workstation: [facility], 02/18/2025 12:02 PM
== END | disposition home or self-care (01) ==
LOC: RADCTMAIN 11:32
PROVIDERS: ATTEND Urology
DX: N28.1 Cyst of kidney, acquired (principal)
CPT/HCPCS: 74176